=== PATIENT | female | born 1945 | race Caucasian/White ===

== ENCOUNTER → 2017-03-03 | Outpatient (CLI) | payer MEDICARE ==
[~2017-03-03] MED LIST: /MOXI40TA; /WARF25TA PO; ACET50TA PO; ACET65TA; ASPI1TAB PO; CAL; CALCTAB29 PO; COMBIVENT; FEXO60CA PO; FISH1200; FLON1SPR; HUMI40KI SC; HUMIRA SUBQ; IBUP200C; LEVO75TA4 PO; LEVOTAB10 PO; METO1TAB7 PO; NUCY50TA PO; RANI150T PO; SYNT50TA; SYNT75TA PO; TOPR25TA PO; VITA100L PO; VITA200019 PO; ZETI10TA21 PO; [UNRECOGNIZED DRUG - OTHER] VAGINALLY
--- NOTE | 2017-03-03 12:18 | REPMRS ---
Patient History The patient states she had a clinical breast exam in 02/2017. Patient is postmenopausal. Family history of pancreatic cancer in father at age 80 and prostate cancer in maternal grandfather at age 80. Took estrogen for 1 month. Digital Woman Screen Mammo: March 03, 2017 - Exam #: [id number] Bilateral CC and MLO view(s) were taken. Technologist: Mona Suarez, Technologist Prior study comparison: March 02, 2016, digital woman screen mammo performed at [facility]. December 26, 2014, digital woman screen mammo performed at [facility]. FINDINGS: There are scattered fibroglandular densities. There has been no change in the appearance of the mammogram from the prior studies. There is a mild amount of residual fibroglandular tissue which is fairly symmetric. There is no interval development of dominant mass, architectural distortion, or clustered microcalcification suggestive of malignancy. ASSESSMENT: BI-RADS/ACR category 1 mammogram. Negative. Recommendation Routine screening mammogram in 1 year (for women over age 40). This mammogram was interpreted with the aid of an FDA-approved computer-aided dectection system. Electronically Signed By: David Jeff MD 03/03/17 [id number]
== END ==
LOC: M WHC 10:34
PROVIDERS: ATTEND Nurse Practitioner Family
DX: Z12.31 Encounter for screening mammogram for malignant neoplasm of breast (principal); Z78.0 Asymptomatic menopausal state; Z80.0 Family history of malignant neoplasm of digestive organs
CPT/HCPCS: G0202; G0463

== ENCOUNTER 2017-05-21 10:02 | Emergency (ER) | payer MEDICARE ==
[~2017-05-21] VITALS: Ht 157.5 cm; Wt 90.9 kg
[~2017-05-21 10:02] MED LIST changes: -ASPI1TAB PO; -FLON1SPR; -HUMI40KI SC; -LEVO75TA4 PO; -LEVOTAB10 PO; -METO1TAB7 PO; -RANI150T PO
[2017-05-21] MEDS ORDERED: ASPI1TAB PO (10:17)
[2017-05-21] MEDS ORDERED: LEVOTAB10 PO (10:17)
[2017-05-21] MEDS ORDERED: RANI150T PO (10:17)
[2017-05-21] MEDS ORDERED: METO1TAB7 PO (10:17)
--- NOTE | 2017-05-21 11:08 | REP ---
Clinical: Chest pain . Comparison: 06/15/2014 . Findings: The mediastinum and cardiac silhouette are stable and within normal limits for portable technique. The lung crawford are clear without acute consolidation, effusion, or pneumothorax. Skeletal structures are intact. Impression: No acute cardiopulmonary process appreciated. Signed by Luis Escobar MD 05/21/2017 11:00 A
[2017-05-21 11:20] LABS: BASO % 0.6 % (0.0-1.0); EOS % 1.4 % (0.0-3.0); LARGE UNSTAINED CELL # 0.1 K/mm3 (0.0-0.4); LARGE UNSTAINED CELL % 2.5 % (0.0-4.0); LYMPH # 1.2 K/mm3 (1.5-4.5); MEAN CORPUSCULAR HGB CONC 33.3 g/dl (32.0-36.5); MEAN CORPUSCULAR VOLUME 90.1 fl (80.0-96.0); MONO # 0.4 K/mm3 (0.0-0.8); MONO % 11.4 % (0.0-5.0); NEUTROPHILS # 1.5 K/mm3 (1.8-7.7); NEUTROPHILS % 47.1 % (36.0-66.0); PLATELET COUNT, AUTOMATED 207 k/mm3 (150-450); RED CELL DISTRIBUTION WIDTH 12.5 % (11.5-14.5); WHITE BLOOD COUNT 3.1 K/mm3 (4.0-10.0)
[2017-05-21 11:23] LABS: ANION GAP 10 MEQ/L (8-16); BLOOD UREA NITROGEN 14 MG/DL (7-18); CALCIUM LEVEL 8.5 MG/DL (8.8-10.2); CARBON DIOXIDE LEVEL 23 MEQ/L (21-32); CHLORIDE LEVEL 112 MEQ/L (98-107); CREATININE FOR GFR 0.91 MG/DL (0.55-1.02); GLOMERULAR FILTRATION RATE > 60.0 (>39); GLUCOSE, FASTING 104 MG/DL (83-110); POTASSIUM SERUM 4.2 MEQ/L (3.5-5.1); SODIUM LEVEL 145 MEQ/L (136-145)
[2017-05-21] MEDS ORDERED: ISOVUE-370 76% 100ML VIAL (Q9967) As Ordered ONE (11:38)
[2017-05-21] MEDS ORDERED: LEVO75TA4 PO (11:58)
[2017-05-21] MEDS ORDERED: FLON1SPR (11:58)
[2017-05-21] MEDS ORDERED: HUMI40KI SC (11:58)
--- NOTE | 2017-05-21 12:02 | REP ---
Clinical: Chest pain . Technique: Axial contrast enhanced images from the thoracic inlet to the upper abdomen using 100 ml Isovue 370 intravenous contrast material with multiplanar re-formations. Findings: Satisfactory enhancement of the pulmonary vasculature is achieved and no filling defects are identified to suggest pulmonary embolus. Further evaluation of the mediastinum demonstrates normal thoracic aorta, heart and pericardium. The bilateral lung crawford are well aerated and demonstrate chronic age-related interstitial changes without consolidation, pleural effusion or pneumothorax. Tracheobronchial tree is patent. No nodule or mass lesion is identified. No adenopathy noted. Surrounding musculoskeletal structures intact Impression: No evidence for pulmonary embolus. No acute mediastinal or pleural parenchymal process. Diffuse chronic age-related interstitial changes. Signed by Luis Escobar MD 05/21/2017 11:54 A
[2017-05-21 14:22] VITALS: BP 119/66
--- NOTE | 2017-05-22 07:32 | ECGEPIP ---
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
--- NOTE | 2017-05-26 07:07 | ECGEPIP ---
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
== END 2017-05-21 14:23 | disposition home or self-care (01) ==
LOC: EDBD 10:02 → M ED 10:02
DX: K21.9 Gastro-esophageal reflux disease without esophagitis (principal); I10 Essential (primary) hypertension; Z79.899 Other long term (current) drug therapy; Z82.49 Family history of ischemic heart disease and other diseases of the circulatory system; Z88.5 Allergy status to narcotic agent; Z88.1 Allergy status to other antibiotic agents; Z88.8 Allergy status to other drugs, medicaments and biological substances; Z88.2 Allergy status to sulfonamides
CPT/HCPCS: 36415; 71010; 71275; 80048; 82550; 82553; 84484; 85025; 93005; 93041; 94760; 99285; Q9967

== ENCOUNTER 2017-08-24 09:18 | Emergency (ER) | payer MEDICARE ==
[~2017-08-24] VITALS: Ht 157.5 cm; Wt 89.5 kg
[~2017-08-24 09:18] MED LIST changes: +ASPI1TAB PO; +FLON1SPR; +HUMI40KI SC; +LEVO75TA4 PO; +LEVOTAB10 PO; +METO1TAB7 PO; +RANI150T PO
[2017-08-24] MEDS ORDERED: OMEP20CA3 (09:33)
[2017-08-24] MEDS ORDERED: MAGNCAP2 PO (09:33)
[2017-08-24 10:14] LABS: BASO % 0.4 % (0.0-1.0); EOS % 0.4 % (0.0-3.0); IMMATURE GRANULOCYTE % 0.4 % (0-0); LYMPH # 1.2 10^3/uL (1.5-4.5); LYMPH % 44.4 % (24.0-44.0); MEAN CORPUSCULAR HEMOGLOBIN 28.8 pg (27.0-33.0); MEAN CORPUSCULAR HGB CONC 32.5 g/dl (32.0-36.5); MEAN CORPUSCULAR VOLUME 88.5 fl (80.0-96.0); MONO # 0.4 10^3/uL (0.0-0.8); MONO % 15.3 % (0.0-5.0); NEUTROPHILS # 1.1 10^3/uL (1.8-7.7); NEUTROPHILS % 39.1 % (36.0-66.0); PLATELET COUNT, AUTOMATED 217 10^3/uL (150-450); RED CELL DISTRIBUTION WIDTH 12.3 % (11.5-14.5); WHITE BLOOD COUNT 2.7 10^3/uL (4.0-10.0)
[2017-08-24 10:29] LABS: ALBUMIN 3.4 GM/DL (3.2-5.2); ALBUMIN/GLOBULIN RATIO 0.76 (1.00-1.93); ALKALINE PHOSPHATASE 85 U/L (45-117); ALT/SGPT 20 U/L (12-78); ANION GAP 8 MEQ/L (8-16); AST/SGOT 20 U/L (7-37); BILIRUBIN,DIRECT < 0.1 MG/DL (0.0-0.2); BILIRUBIN,TOTAL 0.4 MG/DL (0.2-1.0); BLOOD UREA NITROGEN 14 MG/DL (7-18); CALCIUM LEVEL 8.5 MG/DL (8.8-10.2); CARBON DIOXIDE LEVEL 25 MEQ/L (21-32); CHLORIDE LEVEL 108 MEQ/L (98-107); CREATININE FOR GFR 1.04 MG/DL (0.55-1.02); GLOMERULAR FILTRATION RATE 55.5 (>39); GLUCOSE, FASTING 99 MG/DL (83-110); SODIUM LEVEL 141 MEQ/L (136-145); TOTAL PROTEIN 7.9 GM/DL (6.4-8.2)
[2017-08-24 11:29] VITALS: BP 165/81
[2017-08-24] MEDS ORDERED: amLODIPine 5 MG TAB PO ONE (11:30)
[2017-08-24] MEDS ORDERED: AMLO5TAB2 PO (11:52)
[2017-08-24 12:02] VITALS: BP 159/76
--- NOTE | 2017-08-24 12:53 | REP ---
Portable chest x-ray: Single view. History: Chest pain. Comparison study: May 21, 2017. Findings: EKG monitoring electrodes overlie the chest. The lungs are symmetrically aerated and free of infiltrate. Pleural angles are sharp. Heart size is normal. Pulmonary vasculature is not increased. No significant bony abnormality. Impression: Negative portable chest x-ray. Signed by Jaime Branham MD 08/24/2017 02:45 P
--- NOTE | 2017-08-25 04:35 | ECGEPIP ---
Stationary ECG Study [facility] - ED Test Date: 2017-08-24 Pat Name: JEANNE HARO Department: Room: - Gender: F Network Specialist: shanae : 1945 Requested By: Alphonse Mills Order Number: [id number] Reading MD: Alphonse Simmons Measurements Intervals [place] Rate: 71 P: 26 DC: 159 QRS: -13 QRSD: 66 T: -6 QT: 376 QTc: 411 Interpretive Statements SINUS RHYTHM NSTTW ABNORMALITIES SIMILAR TO 05/21/17 Electronically Signed On 08-25-2017 4:34:47 EST by Alphonse Simmons
== END 2017-08-24 12:15 | disposition home or self-care (01) ==
LOC: M ED 09:18 → EDBD 09:18 → M ED 12:15
DX: R07.89 Other chest pain (principal); I10 Essential (primary) hypertension; K21.9 Gastro-esophageal reflux disease without esophagitis; R94.31 Abnormal electrocardiogram [ECG] [EKG]; E78.5 Hyperlipidemia, unspecified; Z79.82 Long term (current) use of aspirin; Z79.899 Other long term (current) drug therapy; Z88.1 Allergy status to other antibiotic agents; Z88.8 Allergy status to other drugs, medicaments and biological substances; Z88.5 Allergy status to narcotic agent; Z88.2 Allergy status to sulfonamides

== ENCOUNTER → 2018-03-22 | Outpatient (CLI) | payer MEDICARE | LOC: M WHC 13:29 | DX: Z12.31 Encounter for screening mammogram for malignant neoplasm of breast (principal); Z01.419 Encounter for gynecological examination (general) (routine) without abnormal findings (principal); N95.9 Unspecified menopausal and perimenopausal disorder; Z78.0 Asymptomatic menopausal state; Z92.23 Personal history of estrogen therapy; Z12.12 Encounter for screening for malignant neoplasm of rectum | CPT/HCPCS: 77067 ==

== ENCOUNTER → 2018-06-13 | Outpatient (REF) | payer MEDICARE ==
[2018-06-13 20:03] LABS: BASO % 0.2 % (0.0-1.0); EOS % 0.5 % (0.0-3.0); IMMATURE GRANULOCYTE % 0.2 % (0-3.0); LYMPH # 0.9 10^3/uL (1.5-4.5); LYMPH % 22.2 % (24.0-44.0); MEAN CORPUSCULAR HEMOGLOBIN 27.8 pg (27.0-33.0); MEAN CORPUSCULAR HGB CONC 31.6 g/dl (32.0-36.5); MONO # 0.3 10^3/uL (0.0-0.8); MONO % 7.7 % (0.0-5.0); NEUTROPHILS # 2.8 10^3/uL (1.8-7.7); NEUTROPHILS % 69.2 % (36.0-66.0); PLATELET COUNT, AUTOMATED 189 10^3/uL (150-450); RED BLOOD COUNT 4.32 10^6/uL (4.00-5.40); RED CELL DISTRIBUTION WIDTH 14.2 % (11.5-14.5); WHITE BLOOD COUNT 4.1 10^3/uL (4.0-10.0)
== END ==
LOC: M LABDRWAD 19:17
DX: Z51.81 Encounter for therapeutic drug level monitoring (principal); Z79.899 Other long term (current) drug therapy
CPT/HCPCS: 85027

== ENCOUNTER → 2018-07-31 | Outpatient (REF) | payer MEDICARE ==
[2018-07-31 13:04] LABS: BASO % 0.6 % (0.0-1.0); EOS % 2.2 % (0.0-3.0); HEMATOCRIT 34.8 % (36.0-47.0); HEMOGLOBIN 11.1 g/dl (12.0-15.5); LYMPH # 1.2 10^3/uL (1.5-4.5); LYMPH % 68.7 % (24.0-44.0); MEAN CORPUSCULAR HEMOGLOBIN 27.8 pg (27.0-33.0); MEAN CORPUSCULAR HGB CONC 31.9 g/dl (32.0-36.5); MEAN CORPUSCULAR VOLUME 87.2 fl (80.0-96.0); MONO # 0.3 10^3/uL (0.0-0.8); MONO % 16.2 % (0.0-5.0); NEUTROPHILS % 12.3 % (36.0-66.0); PLATELET COUNT, AUTOMATED 134 10^3/uL (150-450); RED BLOOD COUNT 3.99 10^6/uL (4.00-5.40); RED CELL DISTRIBUTION WIDTH 14.6 % (11.5-14.5)
[2018-07-31 13:11] LABS: ALBUMIN/GLOBULIN RATIO 0.75 (1.00-1.93); ALKALINE PHOSPHATASE 80 U/L (45-117); ALT/SGPT 18 U/L (12-78); ANION GAP 7 MEQ/L (8-16); AST/SGOT 20 U/L (7-37); BILIRUBIN,TOTAL 0.3 MG/DL (0.2-1.0); BLOOD UREA NITROGEN 15 MG/DL (7-18); CALCIUM LEVEL 8.2 MG/DL (8.8-10.2); CARBON DIOXIDE LEVEL 25 MEQ/L (21-32); CHLORIDE LEVEL 109 MEQ/L (98-107); CHOLESTEROL LEVEL 198 MG/DL (<200); CHOLESTEROL RISK RATIO 6.387 (<5); CREATININE FOR GFR 0.94 MG/DL (0.55-1.30); FREE T4 0.99 NG/DL (0.76-1.46); GLOMERULAR FILTRATION RATE > 60.0 (>39); GLUCOSE, FASTING 100 MG/DL (70-100); HDL CHOLESTEROL 31 MG/DL (>40); LDL CHOLESTEROL 123 MG/DL (<100); NON-HDL-C 167 MG/DL; POTASSIUM SERUM 3.1 MEQ/L (3.5-5.1); SODIUM LEVEL 141 MEQ/L (136-145); TRIGLYCERIDES LEVEL 221 MG/DL (<150)
[2018-07-31 13:31] LABS: NEUTROPHILS # 0.2 10^3/uL (1.8-7.7); POS COUNT POS FLAG; POSITIVE DIFF POS FLAG; WHITE BLOOD COUNT 1.8 10^3/uL (4.0-10.0)
== END ==
LOC: M SFHCADAM 07:59
DX: I10 Essential (primary) hypertension (principal); E03.9 Hypothyroidism, unspecified; K21.9 Gastro-esophageal reflux disease without esophagitis; M05.79 Rheumatoid arthritis with rheumatoid factor of multiple sites without organ or systems involvement
CPT/HCPCS: 84443

== ENCOUNTER → 2018-09-07 | Outpatient (CLI) | payer MEDICARE ==
[~2018-09-07] MED LIST changes: +AMLO5TAB6 PO; +D-MA500C PO; +E-Z-GAS II EFFERVESCENT PACKET (SODIUM BICARB./CITRIC ACID/SIMETHICONE) As Ordered ONE; +E-Z-HD 98% w/w 340GM SUSP BTL As Ordered ONE; +E-Z-PAQUE 96% w/w SUSP 176GM BTL As Ordered ONE; +MAGNCAP2 PO; +MONT10TA2 PO; +OMEP-221 PO; +OMEP20CA3; +PROBCAP14 PO; +STOO100C PO; +SUCR1SS PO; +SYNT88TA2 PO
--- NOTE | 2018-09-12 11:16 | REP ---
Clinical: Epigastric pain. Technique: Double contrast upper GI examination with small bowel follow-through using barium substrates. 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 The esophagus demonstrates relatively normal motility with few tertiary waves noted. Mucosal pattern is otherwise normal and without ulcerations, polyps, or mass lesion. A small hiatal hernia is identified along with minimal reproducible reflux to the distal esophagus. No obvious sequelae of longstanding gastroesophageal reflux disease noted. Evaluation of the stomach and duodenum demonstrate normal gastric rugal and duodenal mucosal folds without evidence for peptic ulcer disease, ulcerations, polyps, intrinsic or extrinsic abnormalities. Small-bowel follow-through portion of the examination demonstrates relatively normal appearance to the small bowel. A small diverticulum is noted involving the crossing duodenum measuring approximately 15 mm maximal diameter. Remainder examination including terminal ileum is unremarkable. Total fluoroscopic time 2.0 minutes . Impression: 1. Small hiatal hernia with minimal gastric reflux. 2. Few scattered tertiary waves through the esophagus likely age-related but with otherwise normal esophageal peristalsis. 3. Small non appearing duodenal diverticulum measuring approximately 15 mm. Electronically Signed by Luis Escobar MD 09/12/2018 11:07 A
== END ==
LOC: M RAD 08:43
PROVIDERS: ATTEND Physician Assistant Medical
DX: K21.9 Gastro-esophageal reflux disease without esophagitis (principal); R10.13 Epigastric pain; K44.9 Diaphragmatic hernia without obstruction or gangrene; K57.10 Diverticulosis of small intestine without perforation or abscess without bleeding

== ENCOUNTER → 2018-09-22 | Outpatient (CLI) | payer MEDICARE ==
[~2018-09-22] MED LIST changes: -E-Z-GAS II EFFERVESCENT PACKET (SODIUM BICARB./CITRIC ACID/SIMETHICONE) As Ordered ONE; -E-Z-HD 98% w/w 340GM SUSP BTL As Ordered ONE; -E-Z-PAQUE 96% w/w SUSP 176GM BTL As Ordered ONE
--- NOTE | 2018-09-22 11:47 | REP ---
RIGHT UPPER QUADRANT ULTRASOUND: Real-time sonographic evaluation of the right upper quadrant performed. Gallbladder demonstrates no evidence of intraluminal sludge or calculi, wall thickening, or pericholecystic fluid. There is no intrahepatic or extrahepatic biliary dilatation, common bile duct measuring 3 mm in diameter. Liver and pancreas demonstrate no gross mass, pancreas is not optimally seen due to overlying bowel gas. Right kidney demonstrates no hydronephrosis with normal size 9.7 cm in length. IMPRESSION: Essentially negative right upper quadrant ultrasound. Electronically Signed by David Jeff MD 09/22/2018 12:56 P
== END ==
LOC: M RAD 09:34
PROVIDERS: ATTEND Physician Assistant Medical
DX: R10.11 Right upper quadrant pain (principal)

== ENCOUNTER 2018-09-28 08:48 | Emergency (ER) | payer MEDICARE ==
[~2018-09-28] VITALS: Ht 157.5 cm; Wt 190.0 kg
[~2018-09-28 08:48] MED LIST changes: -PRED1TABL PO
[2018-09-28 08:49] VITALS: BP 146/78
[2018-09-28] MEDS ORDERED: GI COCKTAIL 50ML BTL(HYOSCYAMINE/MAALOX/LIDOCAINE VISCOUS)(1:3:1) PO ONE (09:15)
[2018-09-28 09:30] LABS: BASO % 0.7 % (0.0-1.0); EOS # 0.1 10^3/uL (0.0-0.50); EOS % 4.3 % (0.0-3.0); HEMATOCRIT 39.4 % (36.0-47.0); HEMOGLOBIN 12.6 g/dl (12.0-15.5); LYMPH # 0.7 10^3/uL (1.5-4.5); LYMPH % 53.2 % (24.0-44.0); MEAN CORPUSCULAR HEMOGLOBIN 26.7 pg (27.0-33.0); MEAN CORPUSCULAR VOLUME 83.5 fl (80.0-96.0); MONO # 0.4 10^3/uL (0.0-0.8); MONO % 28.1 % (0.0-5.0); NEUTROPHILS % 13.7 % (36.0-66.0); PLATELET COUNT, AUTOMATED 172 10^3/uL (150-450); RED BLOOD COUNT 4.72 10^6/uL (4.00-5.40)
[2018-09-28 10:00] LABS: ALBUMIN 3.1 GM/DL (3.2-5.2); BILIRUBIN,DIRECT 0.1 MG/DL (0.0-0.2); BILIRUBIN,TOTAL 0.3 MG/DL (0.2-1.0); CALCIUM LEVEL 8.5 MG/DL (8.8-10.2); CREATININE FOR GFR 0.97 MG/DL (0.55-1.30); GLOMERULAR FILTRATION RATE 59.9 (>39); POTASSIUM SERUM 3.9 MEQ/L (3.5-5.1); TOTAL PROTEIN 7.4 GM/DL (6.4-8.2)
[2018-09-28 10:01] LABS: NEUTROPHILS # 0.2 10^3/uL (1.8-7.7); WHITE BLOOD COUNT 1.4 10^3/uL (4.0-10.0)
[2018-09-28] MEDS ORDERED: SUCR1SS PO (10:14)
[2018-09-28] MEDS ORDERED: SUCRALFATE SUSP 1GM/10ML UD PO ONE (10:30)
--- NOTE | 2018-09-28 18:54 | ECGEPIP ---
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
[2018-10-02] MEDS ORDERED: PRED1TABL PO (13:28)
== END 2018-09-28 10:46 | disposition home or self-care (01) ==
LOC: M ED 08:48
DX: R10.9 Unspecified abdominal pain (principal); R00.0 Tachycardia, unspecified; M06.9 Rheumatoid arthritis, unspecified; Z94.81 Bone marrow transplant status; Z79.899 Other long term (current) drug therapy; Z88.1 Allergy status to other antibiotic agents; Z88.5 Allergy status to narcotic agent; Z88.2 Allergy status to sulfonamides; Z88.8 Allergy status to other drugs, medicaments and biological substances

== ENCOUNTER → 2018-09-28 | Outpatient (REF) | payer MEDICARE ==
[~2018-09-28] MED LIST changes: +PRED1TABL PO
[2018-09-28 15:59] LABS: FREE T4 1.3 NG/DL (0.76-1.46); THYROID STIMULATING HORMONE 2.71 uIU/ML (0.358-3.740)
== END ==
LOC: M SFHCADAM 09-27 15:15
PROVIDERS: ATTEND Physician Assistant Medical
DX: E03.9 Hypothyroidism, unspecified (principal)

== ENCOUNTER → 2018-09-28 | Outpatient (REF) | payer MEDICARE ==
[2018-09-28 15:49] LABS: ALBUMIN 3.1 GM/DL (3.2-5.2); BILIRUBIN,TOTAL 0.3 MG/DL (0.2-1.0); C REACTIVE PROTEIN QUANTITATIV 0.96 MG/DL (0.00-0.30); CALCIUM LEVEL 8.5 MG/DL (8.8-10.2); CREATININE FOR GFR 0.99 MG/DL (0.55-1.30); GLOMERULAR FILTRATION RATE 58.5 (>39); POTASSIUM SERUM 3.9 MEQ/L (3.5-5.1); TOTAL PROTEIN 7.4 GM/DL (6.4-8.2)
== END ==
LOC: M LAB REF 15:14
PROVIDERS: ATTEND Internal Medicine Rheumatology
DX: M05.79 Rheumatoid arthritis with rheumatoid factor of multiple sites without organ or systems involvement (principal); Z79.899 Other long term (current) drug therapy

== ENCOUNTER → 2018-10-23 | Outpatient (REF) | payer MEDICARE ==
[~2018-10-23] MED LIST changes: +PRED1TABL PO
[2018-10-23 20:38] LABS: MAGNESIUM LEVEL 2.2 MG/DL (1.8-2.4)
[2018-10-23 20:51] LABS: TOTAL 25(OH) VITAMIN D 41.9 NG/ML (30.0-100.0)
== END ==
LOC: M LABDRWAD 19:02
PROVIDERS: ATTEND Physician Assistant
DX: E55.9 Vitamin D deficiency, unspecified (principal)

== ENCOUNTER 2018-11-02 20:48 | Emergency (ER) | payer MEDICARE ==
[~2018-11-02] VITALS: Ht 157.5 cm; Wt 86.4 kg
[2018-11-02] MEDS ORDERED: NS 1,000 ML IV ONE (21:15)
[2018-11-02] MEDS ORDERED: ONDANSETRON 4MG/2ML VIAL (J2405) IV ONE (21:15)
[2018-11-02 21:23] LABS: BASO % 0.8 % (0.0-1.0); HEMATOCRIT 36.9 % (36.0-47.0); LYMPH # 0.6 10^3/uL (1.5-4.5); LYMPH % 42.6 % (24.0-44.0); MEAN CORPUSCULAR HEMOGLOBIN 25.9 pg (27.0-33.0); MEAN CORPUSCULAR HGB CONC 32.5 g/dl (32.0-36.5); MEAN CORPUSCULAR VOLUME 79.7 fl (80.0-96.0); MONO # 0.5 10^3/uL (0.0-0.8); PLATELET COUNT, AUTOMATED 161 10^3/uL (150-450); RED BLOOD COUNT 4.63 10^6/uL (4.00-5.40)
[2018-11-02 21:45] LABS: BILIRUBIN,DIRECT 0.3 MG/DL (0.0-0.2); BILIRUBIN,TOTAL 0.9 MG/DL (0.2-1.0); CALCIUM LEVEL 8.8 MG/DL (8.8-10.2); CREATININE FOR GFR 1.1 MG/DL (0.55-1.30); GLOMERULAR FILTRATION RATE 51.8 (>39); POTASSIUM SERUM 3.5 MEQ/L (3.5-5.1)
[2018-11-02 21:49] LABS: NEUTROPHILS # 0.2 10^3/uL (1.8-7.7); WHITE BLOOD COUNT 1.3 10^3/uL (4.0-10.0)
[2018-11-03 00:12] VITALS: BP 131/73
--- NOTE | 2018-11-17 14:16 | REP ---
REPEAT DICTATION ABDOMEN SERIES: Three views. History: Abdomen pain. FINDINGS: Upright chest radiograph is compared with the August 24, 2017 prior study. EKG electrodes are seen. There is no evidence of infiltrate or free subdiaphragmatic air. Heart is not enlarged. Supine erect views of the abdomen show air and stool in a nondistended colon. There is a single air and fluid filled loop of mildly prominent small bowel in the left mid abdomen. This displays small air-fluid levels. Psoas margins and flank stripes are intact. There is some retained diverticular barium in the sigmoid colon. A prosthetic right hip joint is seen. IMPRESSION: Nonspecific small bowel loop in the left mid abdomen. Otherwise negative abdominal series. Unreviewed
== END 2018-11-03 00:18 | disposition home or self-care (01) ==
LOC: M ED 20:48
DX: K52.9 Noninfective gastroenteritis and colitis, unspecified (principal); E03.9 Hypothyroidism, unspecified; M19.90 Unspecified osteoarthritis, unspecified site; M06.9 Rheumatoid arthritis, unspecified; K21.9 Gastro-esophageal reflux disease without esophagitis; E78.5 Hyperlipidemia, unspecified; Z79.899 Other long term (current) drug therapy; Z88.1 Allergy status to other antibiotic agents; Z88.8 Allergy status to other drugs, medicaments and biological substances; Z88.5 Allergy status to narcotic agent; Z88.2 Allergy status to sulfonamides
CPT/HCPCS: 74021; 80048; 80076; 81001; 83690; 85025; 87088; 87186; 93041; 94760; 96361; 96374; 99285; J2405

== ENCOUNTER → 2019-04-09 | Outpatient (CLI) | payer MEDICARE ==
[~2019-04-09] MED LIST changes: -/MOXI40TA; -/WARF25TA PO; -ACET50TA PO; -ASPI1TAB PO; +ASPI81TA26 PO; +AVEL1TAB2; +COUM1TAB18 PO; +D-MA50PO PO; +DIFL150T PO; +MAPA500T17 PO; +METO-1 PO; +MM S100C PO; -OMEP20CA3; +OMEP20CA4; -STOO100C PO; -TOPR25TA PO
--- NOTE | 2019-04-09 15:29 | REP ---
BILATERAL SCREENING DIGITAL MAMMOGRAM WITH 3D TOMOSYNTHESIS: There are no palpable abnormalities or other breast complaints. The the patient states she had a clinical breast examination March/2019. The the patient states she performs self-breast examinations six times per year. The Tyrer-Cuzick Score is: 3.7% . Comparison is 12/05/2013. There are scattered areas of fibroglandular density. There is no dominant mass, micro calcific cluster or architectural distortion that would indicate malignancy. There are no additional findings on 3D tomosynthesiss. There is no change from the prior study. Impression: BIRADS/ACR category 1 mammogram. Negative. Recommendation: Routine annual screening mammography. This mammogram was interpreted with the aid of a FDA approved computer-aided detection system. A. Negative mammogram reports should not delay biopsy if a dominant or clinically suspicious mass is present. B. Not all breast cancers are identified by mammography or tomosynthesis. C. Adenosis and dense breasts may obscure an underlying neoplasm. Patient letter M1. Electronically Signed by David Hernandez MD 04/09/2019 03:21 P
== END ==
LOC: M WHC 14:05
PROVIDERS: ATTEND Nurse Practitioner Family
DX: Z12.31 Encounter for screening mammogram for malignant neoplasm of breast (principal)
CPT/HCPCS: 77063; 77067; G0463

== ENCOUNTER → 2019-07-16 | Outpatient (REF) | payer MEDICARE ==
[2019-07-16 14:08] LABS: EOS % 1.2 % (0.0-3.0); HEMATOCRIT 40.4 % (36.0-47.0); HEMOGLOBIN 12.3 g/dl (12.0-15.5); LYMPH # 0.5 10^3/uL (1.5-5.0); LYMPH % 63.4 % (24.0-44.0); MEAN CORPUSCULAR HGB CONC 30.4 g/dl (32.0-36.5); MEAN CORPUSCULAR VOLUME 91.8 fl (80.0-96.0); MONO # 0.2 10^3/uL (0.0-0.8); MONO % 26.8 % (0.0-5.0); NEUTROPHILS % 8.6 % (36.0-66.0); PLATELET COUNT, AUTOMATED 130 10^3/uL (150-450)
[2019-07-16 16:01] LABS: NEUTROPHILS # 0.1 10^3/uL (1.5-8.5); WHITE BLOOD COUNT 0.8 10^3/uL (4.0-10.0)
== END ==
LOC: M LABDRWAD 12:43
PROVIDERS: ATTEND Internal Medicine Rheumatology
DX: Z79.899 Other long term (current) drug therapy (principal)

== ENCOUNTER → 2019-07-16 | Outpatient (REF) | payer MEDICARE ==
[2019-07-16 14:21] LABS: ALBUMIN 3.1 GM/DL (3.2-5.2); ALT/SGPT 16 U/L (12-78); BILIRUBIN,TOTAL 0.5 MG/DL (0.2-1.0); BLOOD UREA NITROGEN 19 MG/DL (7-18); CALCIUM LEVEL 8.7 MG/DL (8.8-10.2); CARBON DIOXIDE LEVEL 29 MEQ/L (21-32); CHLORIDE LEVEL 108 MEQ/L (98-107); CHOLESTEROL LEVEL 200 MG/DL (<200); CHOLESTEROL RISK RATIO 5.882 (<5); CREATININE FOR GFR 0.91 MG/DL (0.55-1.30); GLOMERULAR FILTRATION RATE > 60.0 (>39); GLUCOSE, FASTING 101 MG/DL (70-100); HDL CHOLESTEROL 34 MG/DL (>40); LDL CHOLESTEROL 130 MG/DL (<100); NON-HDL-C 166 MG/DL; POTASSIUM SERUM 4.3 MEQ/L (3.5-5.1); SODIUM LEVEL 143 MEQ/L (136-145); TOTAL PROTEIN 8.2 GM/DL (6.4-8.2); TRIGLYCERIDES LEVEL 181 MG/DL (<150)
[2019-07-16 15:23] LABS: HEMOGLOBIN A1c 6.6 %
== END ==
LOC: M LABDRWAD 12:44
PROVIDERS: ATTEND Nurse Practitioner Adult Health
DX: E03.9 Hypothyroidism, unspecified (principal); F41.1 Generalized anxiety disorder; K21.9 Gastro-esophageal reflux disease without esophagitis; I10 Essential (primary) hypertension; F32.1 Major depressive disorder, single episode, moderate; Z83.3 Family history of diabetes mellitus; Z79.899 Other long term (current) drug therapy

== ENCOUNTER → 2019-10-23 | Outpatient (REF) | payer MEDICARE ==
[~2019-10-23] MED LIST changes: +CALCTAB38 PO; -MONT10TA2 PO; +MONT10TA4 PO; +OMEP1CAP73; -OMEP20CA4
== END ==
LOC: M LAB REF 09:32
PROVIDERS: ATTEND Dermatology
DX: D48.9 Neoplasm of uncertain behavior, unspecified (principal)

== ENCOUNTER 2020-01-17 04:40 | Emergency (ER) | payer MEDICARE ==
[2020-01-17] MEDS ORDERED: METOCLOPRAMIDE INJ 10MG/2ML VIAL (J2765 PER 1) IV ONE (05:15)
[2020-01-17] MEDS ORDERED: NS 1,000 ML IV ONE ×3 (05:15→08:45)
[2020-01-17 05:51] LABS: EOS % 0.4 % (0.0-3.0); HEMATOCRIT 46.3 % (36.0-47.0); HEMOGLOBIN 15.1 g/dl (12.0-15.5); LYMPH # 0.3 10^3/uL (1.5-5.0); LYMPH % 13.5 % (24.0-44.0); MEAN CORPUSCULAR HEMOGLOBIN 25.6 pg (27.0-33.0); MEAN CORPUSCULAR HGB CONC 32.6 g/dl (32.0-36.5); MEAN CORPUSCULAR VOLUME 78.5 fl (80.0-96.0); MONO # 0.4 10^3/uL (0.0-0.8); MONO % 15.9 % (0.0-5.0); NEUTROPHILS # 1.7 10^3/uL (1.5-8.5); NEUTROPHILS % 69.8 % (36.0-66.0); PLATELET COUNT, AUTOMATED 168 10^3/uL (150-450); WHITE BLOOD COUNT 2.5 10^3/uL (4.0-10.0)
[2020-01-17 06:06] LABS: CREATININE FOR GFR 1.12 MG/DL (0.55-1.30); GLOMERULAR FILTRATION RATE 50.6 (>39); POTASSIUM SERUM 4.5 MEQ/L (3.5-5.1)
[2020-01-17 06:07] LABS: ALBUMIN 3.7 GM/DL (3.2-5.2); BILIRUBIN,DIRECT 0.2 MG/DL (0.0-0.2); CALCIUM LEVEL 9.4 MG/DL (8.8-10.2); TOTAL PROTEIN 9.3 GM/DL (6.4-8.2)
[2020-01-17] MEDS ORDERED: ISOVUE-370 76% 100ML VIAL As Ordered ONE (06:40)
--- NOTE | 2020-01-17 07:19 | REPVR ---
PROCEDURE INFORMATION: Exam: CT Abdomen And Pelvis With Contrast Exam date and time: 01/17/2020 6:33 AM Age: 74 years old Clinical indication: Abdominal pain; Generalized TECHNIQUE: Imaging protocol: Computed tomography of the abdomen and pelvis with intravenous contrast. Radiation optimization: All CT scans at this facility use at least one of these dose optimization techniques: automated exposure control; mA and/or kV adjustment per patient size (includes targeted exams where dose is matched to clinical indication); or iterative reconstruction. Contrast material: ISO; Contrast volume: 100 ml; Contrast route: AC; COMPARISON: US PELVIC NON OB COMPLETE 10/22/2013 11:15 AM FINDINGS: Lungs: There are bibasilar and lingular atelectatic lung changes. Mediastinum: There is small sliding hiatal hernia. Liver: Normal. No mass. Gallbladder and bile ducts: Normal. No calcified stones. No ductal dilation. Pancreas: Normal. No ductal dilation. Spleen: The spleen is markedly enlarged measuring 17.4 x 12.9 x 8.5 cm. Adrenals: Normal. No mass. Kidneys and ureters: Normal. No hydronephrosis. Stomach and bowel: There is descending and sigmoid colon diverticulosis. There are multiple mildly distended small bowel loops with fluid measuring up to 3.2 cm in maximum dimensions with mural thickening and hyperemia coupled with mesenteric stranding and edema in addition to multiple shotty small bowel mesenteric lymph nodes. There there is nondistention of the distal ileum however without evidence of sudden transition. Appendix: No evidence of appendicitis. Intraperitoneal space: Unremarkable. No free air. No significant fluid collection. Vasculature: There is mild aortic and iliac mural calcifications. Lymph nodes: Unremarkable. No enlarged lymph nodes. Bladder: Unremarkable as visualized. Reproductive: There is a 1.9 cm right ovarian cyst. Bones/joints: There is diffuse bony osteopenia. There is L2-L3 through L4-L5 disc degenerative changes. There is mild lumbar spine scoliosis. There is multilevel lumbar spine facet arthrosis. There is grade 1 retrolisthesis of L4 on L5. The patient is status post total right hip replacement with grossly intact prosthesis. Soft tissues: Unremarkable. IMPRESSION: 1. CT findings suggestive enteritis with mild ileus like picture. Obstruction is unlikely. 2. Descending and sigmoid colon diverticulosis. 3. Marked splenomegaly. 4. Small sliding hiatal hernia. 5. 1.9 cm right ovarian cyst corresponding to simple cyst seen on ultrasound of 2013. Electronically signed by: Martínez Beth On 01/17/2020 07:18:45 AM
[2020-01-17 09:41] LABS: FREE T4 1.75 NG/DL (0.76-1.46); THYROID STIMULATING HORMONE 1.79 uIU/ML (0.358-3.740)
[2020-01-17 10:30] VITALS: BP 135/77
== END 2020-01-17 11:02 | disposition home or self-care (01) ==
LOC: M ED 04:40
DX: D70.9 Neutropenia, unspecified (principal); R10.9 Unspecified abdominal pain; R11.10 Vomiting, unspecified; R00.0 Tachycardia, unspecified; I10 Essential (primary) hypertension; K21.9 Gastro-esophageal reflux disease without esophagitis; M19.90 Unspecified osteoarthritis, unspecified site; Z88.1 Allergy status to other antibiotic agents; Z88.2 Allergy status to sulfonamides; Z88.5 Allergy status to narcotic agent; Z79.899 Other long term (current) drug therapy; Z79.52 Long term (current) use of systemic steroids
CPT/HCPCS: 51701; 74177; 80048; 80076; 81001; 83605; 83690; 84439; 84443; 85025; 87040; 96361; 96374; 99284; J2765; Q9967

== ENCOUNTER → 2020-05-16 | Outpatient (REF) | payer MEDICARE ==
[~2020-05-16] MED LIST changes: +AMLO1TAB24 PO; -AMLO5TAB6 PO; +CIPR5SUS PO; +KEFL500C17 PO; +OMEP-218 PO; +PRED5TA PO
[2020-05-16 14:20] LABS: EOS % 1.2 % (0.0-3.0); HEMATOCRIT 40.2 % (36.0-47.0); HEMOGLOBIN 12.5 g/dl (12.0-15.5); LYMPH # 0.9 10^3/uL (1.5-5.0); LYMPH % 54.4 % (24.0-44.0); MEAN CORPUSCULAR HEMOGLOBIN 25.8 pg (27.0-33.0); MEAN CORPUSCULAR HGB CONC 31.1 g/dl (32.0-36.5); MEAN CORPUSCULAR VOLUME 82.9 fl (80.0-96.0); MONO # 0.5 10^3/uL (0.0-0.8); MONO % 27.5 % (0.0-5.0); NEUTROPHILS % 16.9 % (36.0-66.0); PLATELET COUNT, AUTOMATED 207 10^3/uL (150-450); RED BLOOD COUNT 4.85 10^6/uL (4.00-5.40); WHITE BLOOD COUNT 1.7 10^3/uL (4.0-10.0)
[2020-05-16 14:25] LABS: NEUTROPHILS # 0.3 10^3/uL (1.5-8.5)
== END ==
LOC: M LABDRWAD 12:27
PROVIDERS: ATTEND Specialist
DX: Z51.81 Encounter for therapeutic drug level monitoring (principal)

== ENCOUNTER → 2020-05-30 | Outpatient (REF) | payer MEDICARE ==
[2020-05-30 13:32] LABS: BASO % 0.6 % (0.0-1.0); EOS % 1.9 % (0.0-3.0); HEMATOCRIT 40.1 % (36.0-47.0); HEMOGLOBIN 12.3 g/dl (12.0-15.5); LYMPH # 0.9 10^3/uL (1.5-5.0); LYMPH % 52.5 % (24.0-44.0); MEAN CORPUSCULAR HEMOGLOBIN 25.9 pg (27.0-33.0); MEAN CORPUSCULAR HGB CONC 30.7 g/dl (32.0-36.5); MEAN CORPUSCULAR VOLUME 84.4 fl (80.0-96.0); MONO # 0.4 10^3/uL (0.0-0.8); MONO % 24.1 % (0.0-5.0); NEUTROPHILS % 19.7 % (36.0-66.0); PLATELET COUNT, AUTOMATED 159 10^3/uL (150-450); RED BLOOD COUNT 4.75 10^6/uL (4.00-5.40); WHITE BLOOD COUNT 1.6 10^3/uL (4.0-10.0)
[2020-05-30 14:27] LABS: NEUTROPHILS # 0.3 10^3/uL (1.5-8.5)
== END ==
LOC: M LABDRWAD 12:43
PROVIDERS: ATTEND Specialist
DX: Z51.81 Encounter for therapeutic drug level monitoring (principal)

== ENCOUNTER → 2020-06-19 | Outpatient (REF) | payer MEDICARE ==
[2020-06-19 16:41] LABS: EOS % 2.8 % (0.0-3.0); HEMATOCRIT 39.1 % (36.0-47.0); HEMOGLOBIN 11.9 g/dl (12.0-15.5); LYMPH # 0.4 10^3/uL (1.5-5.0); LYMPH % 31.2 % (24.0-44.0); MEAN CORPUSCULAR HEMOGLOBIN 25.5 pg (27.0-33.0); MEAN CORPUSCULAR HGB CONC 30.4 g/dl (32.0-36.5); MEAN CORPUSCULAR VOLUME 83.7 fl (80.0-96.0); MONO # 0.3 10^3/uL (0.0-0.8); PLATELET COUNT, AUTOMATED 228 10^3/uL (150-450); RED BLOOD COUNT 4.67 10^6/uL (4.00-5.40); WHITE BLOOD COUNT 1.4 10^3/uL (4.0-10.0)
[2020-06-19 16:51] LABS: NEUTROPHILS # 0.6 10^3/uL (1.5-8.5)
== END ==
LOC: M LABDRWAD 16:03
PROVIDERS: ATTEND Specialist
DX: D69.6 Thrombocytopenia, unspecified (principal)

== ENCOUNTER → 2020-07-03 | Outpatient (REF) | payer MEDICARE ==
[2020-07-03 13:02] LABS: HEMOGLOBIN A1c 7.4 %
[2020-07-03 13:10] LABS: BLOOD UREA NITROGEN 21 MG/DL (7-18); CARBON DIOXIDE LEVEL 27 MEQ/L (21-32); CHLORIDE LEVEL 109 MEQ/L (98-107); CREATININE FOR GFR 0.83 MG/DL (0.55-1.30); GLOMERULAR FILTRATION RATE > 60.0 (>39); GLUCOSE, FASTING 100 MG/DL (70-100); POTASSIUM SERUM 4.4 MEQ/L (3.5-5.1); SODIUM LEVEL 141 MEQ/L (136-145)
[2020-07-03 13:11] LABS: ALT/SGPT 26 U/L (12-78); BILIRUBIN,TOTAL 0.4 MG/DL (0.2-1.0); CALCIUM LEVEL 8.6 MG/DL (8.8-10.2); CHOLESTEROL LEVEL 198 MG/DL (<200); HDL CHOLESTEROL 33 MG/DL (>40); LDL CHOLESTEROL 121 MG/DL (<100); NON-HDL-C 165 MG/DL; TOTAL PROTEIN 7.6 GM/DL (6.4-8.2); TRIGLYCERIDES LEVEL 222 MG/DL (<150)
== END ==
LOC: M SFHCPLAZ 09:02 → M SFHCADAM 09:14
PROVIDERS: ATTEND Nurse Practitioner Adult Health
DX: R73.9 Hyperglycemia, unspecified (principal); E03.9 Hypothyroidism, unspecified; F41.1 Generalized anxiety disorder; K21.9 Gastro-esophageal reflux disease without esophagitis; I10 Essential (primary) hypertension; F32.1 Major depressive disorder, single episode, moderate; E55.9 Vitamin D deficiency, unspecified

== ENCOUNTER → 2020-07-09 | Outpatient (CLI) | payer MEDICARE ==
--- NOTE | 2020-07-09 16:38 | REPMRS ---
Patient History The patient states she had a clinical breast exam in March 2020.Family history of pancreatic cancer at age 80 in father, prostate cancer at age 80 in maternal grandfather. Took estrogen for 1 month. 3D TOMOSYNTHESIS WAS PERFORMED. [facility] for [facility]%. Volpara breast density a. Digital Woman Screen Mammo: July 09, 2020 - Exam #: [id number] Bilateral CC and MLO view(s) were taken. Technologist: Estrella Aleman, Technologist Prior study comparison: April 09, 2019, bilateral digital woman screen mammo performed at [facility]. March 22, 2018, bilateral digital woman screen mammo performed at [facility]. FINDINGS: There are scattered fibroglandular densities. There has been no change in the appearance of the mammogram from the prior studies. There is a mild amount of residual fibroglandular tissue which is fairly symmetric. There is no interval development of dominant mass, architectural distortion, or clustered microcalcification suggestive of malignancy. Assessment: BI-RADS/ACR category 1 mammogram. Negative Mammogram. Recommendation Routine screening mammogram in 1 year (for women over age 40). This mammogram was interpreted with the aid of an FDA-approved computer-aided dectection system. Electronically Signed By: David Jeff MD 07/09/20 [id number]
== END ==
LOC: M WHC 12:54
PROVIDERS: ATTEND Nurse Practitioner Adult Health
DX: Z12.31 Encounter for screening mammogram for malignant neoplasm of breast (principal)

== ENCOUNTER → 2020-07-16 | Outpatient (REF) | payer MEDICARE ==
[2020-07-16 17:55] LABS: HEMATOCRIT 38.1 % (36.0-47.0); HEMOGLOBIN 11.7 g/dl (12.0-15.5); MEAN CORPUSCULAR HEMOGLOBIN 25.8 pg (27.0-33.0); MEAN CORPUSCULAR HGB CONC 30.7 g/dl (32.0-36.5); MEAN CORPUSCULAR VOLUME 84.1 fl (80.0-96.0); PLATELET COUNT, AUTOMATED 179 10^3/uL (150-450); RED BLOOD COUNT 4.53 10^6/uL (4.00-5.40); WHITE BLOOD COUNT 1.1 10^3/uL (4.0-10.0)
[2020-07-16 18:27] LABS: ANISOCYTOSIS 1+; ATYPICAL LYMPH 2 % (0-5); EOSINOPHILS 1 % (0-3); LYMPHOCYTES 55 % (16-44); METAMYELOCYTES 2 % (0-0); MONOCYTES 34 % (0-5); NEUTROPHILS 4 % (28-66); PLATELET ESTIMATE NORMAL (NORMAL)
[2020-07-16 18:28] LABS: HYPOCHROMASIA 1+
== END ==
LOC: M LABDRWAD 17:25
PROVIDERS: ATTEND Specialist
DX: Z51.81 Encounter for therapeutic drug level monitoring (principal)

== ENCOUNTER → 2020-10-16 | Outpatient (REF) | payer MEDICARE ==
[~2020-10-16] MED LIST changes: +D31000TA2 PO; +MONT10TA10 PO; -MONT10TA4 PO
[2020-10-16 17:08] LABS: EOS # 0.1 10^3/uL (0.0-0.5); EOS % 4.6 % (0.0-3.0); HEMATOCRIT 36.9 % (36.0-47.0); HEMOGLOBIN 11.3 g/dl (12.0-15.5); LYMPH # 0.4 10^3/uL (1.5-5.0); LYMPH % 33.3 % (24.0-44.0); MEAN CORPUSCULAR HEMOGLOBIN 24.5 pg (27.0-33.0); MEAN CORPUSCULAR HGB CONC 30.6 g/dl (32.0-36.5); MEAN CORPUSCULAR VOLUME 79.9 fl (80.0-96.0); MONO # 0.4 10^3/uL (0.0-0.8); MONO % 34.3 % (0.0-5.0); NEUTROPHILS % 26.9 % (36.0-66.0); PLATELET COUNT, AUTOMATED 175 10^3/uL (150-450); RED BLOOD COUNT 4.62 10^6/uL (4.00-5.40); WHITE BLOOD COUNT 1.1 10^3/uL (4.0-10.0)
[2020-10-16 17:12] LABS: NEUTROPHILS # 0.3 10^3/uL (1.5-8.5)
== END ==
LOC: M LABDRWAD 16:08
PROVIDERS: ATTEND Internal Medicine Rheumatology
DX: Z79.899 Other long term (current) drug therapy (principal); M05.79 Rheumatoid arthritis with rheumatoid factor of multiple sites without organ or systems involvement

== ENCOUNTER → 2020-11-11 | Outpatient (REF) | payer MEDICARE ==
[2020-11-11 16:33] LABS: EOS % 0.8 % (0.0-3.0); HEMATOCRIT 40.4 % (36.0-47.0); HEMOGLOBIN 12.1 g/dl (12.0-15.5); LYMPH # 0.6 10^3/uL (1.5-5.0); LYMPH % 22.2 % (24.0-44.0); MONO # 0.3 10^3/uL (0.0-0.8); MONO % 11.7 % (2.0-8.0); NEUTROPHILS # 1.7 10^3/uL (1.5-8.5); NEUTROPHILS % 65.3 % (36.0-66.0); PLATELET COUNT, AUTOMATED 180 10^3/uL (150-450); RED BLOOD COUNT 5.05 10^6/uL (4.00-5.40); WHITE BLOOD COUNT 2.6 10^3/uL (4.0-10.0)
== END ==
LOC: M LABDRWAD 14:19
PROVIDERS: ATTEND Internal Medicine Rheumatology
DX: Z51.81 Encounter for therapeutic drug level monitoring (principal); Z79.899 Other long term (current) drug therapy; M05.79 Rheumatoid arthritis with rheumatoid factor of multiple sites without organ or systems involvement

== ENCOUNTER → 2020-12-17 | Outpatient (REF) | payer MEDICARE | LOC: M SFHCPLAZ 11:18 → M SFHCADAM 11:20 | PROVIDERS: ATTEND Nurse Practitioner Adult Health | DX: E55.9 Vitamin D deficiency, unspecified (principal); E11.9 Type 2 diabetes mellitus without complications; Z79.899 Other long term (current) drug therapy ==

== ENCOUNTER → 2020-12-17 | Outpatient (REF) | payer MEDICARE ==
[2020-12-17 13:08] LABS: EOS % 2.4 % (0.0-3.0); HEMATOCRIT 39.1 % (36.0-47.0); HEMOGLOBIN 11.6 g/dl (12.0-15.5); LYMPH # 0.6 10^3/uL (1.5-5.0); LYMPH % 37.6 % (24.0-44.0); MEAN CORPUSCULAR HEMOGLOBIN 23.9 pg (27.0-33.0); MEAN CORPUSCULAR HGB CONC 29.7 g/dl (32.0-36.5); MEAN CORPUSCULAR VOLUME 80.6 fl (80.0-96.0); MONO # 0.3 10^3/uL (0.0-0.8); MONO % 15.9 % (2.0-8.0); NEUTROPHILS % 44.1 % (36.0-66.0); PLATELET COUNT, AUTOMATED 178 10^3/uL (150-450); RED BLOOD COUNT 4.85 10^6/uL (4.00-5.40); WHITE BLOOD COUNT 1.7 10^3/uL (4.0-10.0)
[2020-12-17 13:11] LABS: NEUTROPHILS # 0.8 10^3/uL (1.5-8.5)
== END ==
LOC: M LABDRWAD 12:49
PROVIDERS: ATTEND Internal Medicine Rheumatology
DX: M05.79 Rheumatoid arthritis with rheumatoid factor of multiple sites without organ or systems involvement (principal); Z79.899 Other long term (current) drug therapy

== ENCOUNTER 2021-01-13 12:10 | Inpatient (IN) | payer MEDICARE ==
[~2021-01-13] VITALS: Ht 157.5 cm; Wt 83.3 kg
[2021-01-13] MEDS ORDERED: ONDANSETRON 4MG/2ML VIAL IV ONE (12:35)
[2021-01-13 13:01] LABS: HEMATOCRIT 41.6 % (36.0-47.0); MEAN CORPUSCULAR HEMOGLOBIN 24.6 pg (27.0-33.0); MEAN CORPUSCULAR HGB CONC 31.3 g/dl (32.0-36.5); MEAN CORPUSCULAR VOLUME 78.6 fl (80.0-96.0); PLATELET COUNT, AUTOMATED 196 10^3/uL (150-450); RED BLOOD COUNT 5.29 10^6/uL (4.00-5.40); WHITE BLOOD COUNT 1.4 10^3/uL (4.0-10.0)
[2021-01-13 13:29] LABS: ATYPICAL LYMPH 10 % (0-5); LYMPHOCYTES 52 % (16-44); MONOCYTES 35 % (0-5); NEUTROPHILS 3 % (28-66)
[2021-01-13 13:34] LABS: PLATELET ESTIMATE NORMAL (NORMAL)
[2021-01-13 13:50] LABS: ALBUMIN 3.7 GM/DL (3.2-5.2); ALT/SGPT 17 U/L (12-78); BILIRUBIN,DIRECT 0.2 MG/DL (0.0-0.2); BILIRUBIN,TOTAL 0.8 MG/DL (0.2-1.0); BLOOD UREA NITROGEN 21 MG/DL (7-18); CALCIUM LEVEL 9.3 MG/DL (8.8-10.2); CARBON DIOXIDE LEVEL 23 MEQ/L (21-32); CHLORIDE LEVEL 106 MEQ/L (98-107); CREATININE FOR GFR 0.94 MG/DL (0.55-1.30); GLOMERULAR FILTRATION RATE > 60.0 (>39); GLUCOSE, FASTING 166 MG/DL (70-100); LIPASE 57 U/L (73-393); POTASSIUM SERUM 4.1 MEQ/L (3.5-5.1); SODIUM LEVEL 139 MEQ/L (136-145); TOTAL PROTEIN 8.3 GM/DL (6.4-8.2)
[2021-01-13 13:52] LABS: CK-MB VALUE MASS < 1.0 NG/ML (<3.6); CPK CREATINE PHOSPHOKINASE 38 U/L (26-192); MB/CK RELATIVE INDEX 2.63 (< OR =4); TROPONIN I < 0.02 NG/ML (< 0.10)
[2021-01-13] MEDS: NS 1,000 ML IV SCH ×3 (13:57→21:46)
[2021-01-13] MEDS: GASTROGRAFIN SOLUTION 30ML PO SCH ×2 (14:35→15:05)
[2021-01-13] MEDS ORDERED: KETOROLAC 30 MG/ML 1ML VIAL IV ONE (14:39)
[2021-01-13] MEDS ORDERED: ISOVUE-370 76% 100ML VIAL As Ordered ONE (15:27)
[2021-01-13 15:47] LABS: CK-MB VALUE MASS < 1.0 NG/ML (<3.6); CPK CREATINE PHOSPHOKINASE 34 U/L (26-192); MB/CK RELATIVE INDEX 2.94 (< OR =4); TROPONIN I < 0.02 NG/ML (< 0.10)
--- NOTE | 2021-01-13 15:57 | REP ---
INDICATION: abd pain vomiting refused oral contrast. COMPARISON: Comparison CT study is from January 17, 2020.. TECHNIQUE: Helical scanning was acquired and 4 mm axial images are re-formatted. Coronal and sagittal MPR images were generated and reviewed. The contrast enhancement dose is 100 mL of intravenous Isovue 370. 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 A right hip arthroplasty is noted in place. Axial CT images demonstrate that the lung bases are essentially clear. There is no evidence of ascites or pleural effusion. A small to moderate sliding-type hiatal hernia is noted. Normal adrenal glands are seen. There is an accessory splenule in the left upper quadrant anteriorly. No focal hepatic or splenic lesion is seen. The gallbladder is unremarkable. No abnormality is noted in the pancreas. The kidneys enhance symmetrically and are morphologically intact. No retroperitoneal mass or adenopathy is seen. Normal caliber aorta is seen with some calcification. A normal retrocecal appendix is observed. The small bowel is dilated in the mid and distal ileal loops. There is a point of transition in the distal ileum, prox well proximal to the ileocecal valve. There is some stool in the right colon. Left colon is empty. No colonic distention is seen. There is left colonic diverticulosis. There is some mesenteric edema and minimal fluid in the mesentery of the dilated small bowel loops in the central abdomen. The point of transition is in the right lower quadrant ileum but no mass or obvious extrinsically lesion is appreciated here. There is no abdominal wall defect visible. No free air or abscess is appreciated. IMPRESSION: Small-bowel obstruction pattern with point of transition in the right lower quadrant in the mid to distal ileum. Etiology uncertain. There is left colonic diverticulosis. Normal appendix. Hiatal hernia. Otherwise negative. <Electronically signed by Huan Branham > 01/13/21 [id number]
[2021-01-13] MEDS ORDERED: D-MA500C2 PO (16:41)
[2021-01-13] MEDS ORDERED: PRED5TA PO (16:41)
[2021-01-13] MEDS ORDERED: PROT20TA11 PO (16:41)
[2021-01-13] MEDS ORDERED: AMLO1TAB24 PO (16:41)
--- NOTE | 2021-01-13 17:53 | ECGEPIP ---
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
--- NOTE | 2021-01-13 17:54 | ECGEPIP ---
[facility] - ED Test Date: 2021-01-13 Pat Name: JEANNE HARO Department: Room: - Gender: Female Contract Coordinator: : 1945 Requested By: ALAN Mcmahon Order Number: [id number] Reading MD: Joana Graff Measurements Intervals [place] Rate: 105 P: 34 [place]: 146 QRS: -8 QRSD: 72 T: 9 QT: 348 QTc: 459 Interpretive Statements Sinus tachycardia Anterior infarct , age undetermined NSTTW abnormalities similar 01/13/21 12:55 Electronically Signed on 01-13-2021 17:54:35 EDT by Joana Graff
[2021-01-13] MEDS ORDERED: KETOROLAC 30 MG/ML 1ML VIAL IV PRN (19:00)
[2021-01-13] MEDS ORDERED: ONDANSETRON 4MG/2ML VIAL IV PRN (19:00)
--- NOTE | 2021-01-13 19:06 | HPEPDOC ---
General Date of Admission 01/13/21 Date of Service: January 13, 2021 Chief Complaint The patient is a 75-year-old female admitted with a reason for visit of Abd Pain. Source: Patient, RN/MD History of Present Illness 75 year old female presented to ED with 1 day history of abdominal pain and multiple episodes of vomiting. Patient reports that she was feeling a little bloated for the past 3 to 4 days but was having small hard bowel movements which is not unusual for her. She was eating normally. Then she started having severe crampy abdominal pain across the center of the abdomen and around the umbilicus since last night. He pain was 8/10 in intensity when the cramps came then it would go away. Then from early this morning she started vomiting and vomiting innumerable times about every 1/2 hour with green bile coming out associated with worsened abdominal pain. In the ED CT abdomen showed SBO with dilated ileal loops with transition point in transition in the mid to distal ileum, well proximal to the ileocecal valve. She was admitted for SBO. Home Medications Scheduled Adalimumab (Humira) 40 Mg/0.8 Ml Kit, 40 MG SC Q2WK, (Reported) EVERY OTHER TUESDAY Amlodipine Besylate (Amlodipine Besylate) 5 Mg Tablet, 5 MG PO DAILY, (Reported) Cholecalciferol (Vitamin D3) (Vitamin D3) 1,000 Unit Tablet, 1,000 UNITS PO DAILY, (Reported) D-Mannose (Azo D-Mannose) 500 Mg Capsule, 500 MG PO DAILY, (Reported) Docusate Sodium (Stool Softener) 100 Mg Cap, 100 MG PO BID, (Reported) Levocetirizine Dihydrochloride (Levocetirizine Dihydrochloride) 5 Mg Tab, 5 MG PO QHS, (Reported) Levothyroxine Sodium (Synthroid) 88 Mcg Tab, 88 MCG PO DAILY, (Reported) Metoprolol Succinate (Metoprolol Succinate) 50 Mg Tab, 50 MG PO QHS, (Reported) Montelukast Sodium (Montelukast Sodium) 10 Mg Tab, 10 MG PO QHS, (Reported) Pantoprazole Sodium (Protonix) 20 Mg Tablet.dr, 20 MG PO DAILY, (Reported) Prednisone (Prednisone) 5 Mg Tablet, 5 MG PO DAILY, (Reported) Allergies Coded Allergies: codeine (Verified Allergy, Severe, sob, increased pulse, 12/07/18) esomeprazole (Verified Allergy, Intermediate, rash, hives, 12/07/18) erythromycin base (Verified Allergy, Unknown, 12/07/18) Sulfa (Sulfonamide Antibiotics) (Verified Adverse Reaction, Intermediate, n/v, 12/07/18) morphine (Verified Adverse Reaction, Intermediate, n/v, 12/07/18) Cephalosporins (Verified Adverse Reaction, Mild, fever, 12/07/18) azithromycin (Verified Adverse Reaction, Mild, fever, 12/07/18) sitagliptin (Verified Adverse Reaction, Unknown, RA FLAREUP, 01/13/21) Past Medical History Medical History Rheumatoid arthritis diagnosed at the age of 28, 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 tubal ligation hypothyroidism hypertension. OSTEOARTHRITIS HEMORRHOIDS ESOPHAGEAL REFLUX, HYPERLIPIDEMIA, DOESN'T TOLERATE STATINS D/T JOINT/MUSCLE PAINS ANAL FISSURE SEASONAL ALLERGIES ACTINIC KERATOSES SEBORRHEIC KERATOSES MATA ANGIOMA Family History The patient's father at age of 80 from complications from pancreatic cancer. The patient's mother at age of 93 from complications of dementia. DAUGHTER TYPE 1 IDDM GRANDAUGHTER TYPE 1 IDDM, Social History * Smoker: non-smoker Alcohol: rarely (abut 1 drink a month) A-FIB/CHADSVASC A-FIB History Current/History of A-Fib/PAF?: No Review of Systems Constitutional: Denies: Chills, Fever, Night Sweats Eyes: Denies: Pain, Vision change ENT: Denies: Head Aches, Ear Pain, Dysphagia Skin: Denies: Rash, Lesions, Breakdown Pulmonary: Denies: Dyspnea, Cough Cardiovascular: Denies: Chest Pain, Palpitations, Orthopnea, Paroxysmal Noc. Dyspnea, Lt Headedness Gastrointestinal: Reports: Nausea, Vomiting, Abdominal Pain, Constipation Genitourinary: Denies: Dysuria, Frequency, Incontinence, Retention Hematologic: Denies: Bruising, Bleeding Excessively Musculoskeletal: Reports: Back Pain, Joint Pain Neurological: Denies: Weakness, Numbness, Change in speech, Confusion Physical Examination General Exam: Positive: Alert, Cooperative, No Acute Distress Eye Exam: Positive: PERRLA, Conjunctiva & lids normal, EOMI; Negative: Sclera icteric ENT Exam: Positive: Atraumatic, Mucous membr. moist/pink, Pharynx Normal Neck Exam: Positive: Supple; Negative: JVD, thyromegaly Chest Exam: Positive: Clear to auscultation, Normal air movement Heart Exam: Positive: Tachycardic, Regular Rhythm, Normal S1, Normal S2; Negative: Murmurs, Rubs Telemetry: Positive: Sinus, Tachycardia Abdomen Exam: Positive: BS Hypoactive, Soft, Tenderness (periumbilical region), Other (distenson, no guarding or rigidity or rebound) Extremity Exam: Negative: Clubbing, Cyanosis, Edema Skin Exam: Positive: Nl turgor and temperature; Negative: Breakdown, Lesion Vital Signs Vital Signs Date Time Temp Pulse Resp B/P (MAP) Pulse Ox O2 Delivery O2 Flow Rate FiO2 01/13/21 12:24 97.8 103 18 161/82 96 Room Air Laboratory Data Labs 24H Laboratory Tests 2 01/13/21 12:37: Neutrophils (%) (Auto) , Neutrophils # (Auto) , Nucleated Red Blood Cells % (auto) 0.0, Neutrophils 3L, Lymphocytes (Manual) 52H, Monocytes (Manual) 35H, Atypical Lymphocytes 10H, Red Blood Cell Morphology NORMAL, Platelet Estimate NORMAL, Anion Gap 10, Glomerular Filtration Rate > 60.0, Lactic Acid Level 2.4*H, Calcium Level 9.3, Total Bilirubin 0.8, Direct Bilirubin 0.2, Aspartate Amino Transf (AST/SGOT) 12, Alanine Aminotransferase (ALT/SGPT) 17, Alkaline Phosphatase 100, Total Protein 8.3H, Albumin 3.7, Albumin/Globulin Ratio 0.8L, Lipase 57L 01/13/21 12:38: Total Creatine Kinase 38, Creatine Kinase MB < 1.0, Creatine Kinase MB Relative Index 2.63, Troponin I < 0.02 01/13/21 14:50: Total Creatine Kinase 34, Creatine Kinase MB < 1.0, Creatine Kinase MB Relative Index 2.94, Troponin I < 0.02 CBC/BMP Laboratory Tests 01/13/21 12:37 Assessment/Plan 75 year old female presented to ED with 1 day history of abdominal pain and multiple episodes of vomiting. Patient reports that she was feeling a little bloated for the past 3 to 4 days but was having small hard bowel movements which is not unusual for her. She was eating normally. Then she started having severe crampy abdominal pain across the center of the abdomen and around the umbilicus since last night. He pain was 8/10 in intensity when the cramps came then it would go away. Then from early this morning she started vomiting and vomiting innumerable times about every 1/2 hour with green bile coming out associated with worsened abdominal pain. In the ED CT abdomen showed SBO with dilated ileal loops with transition point in transition in the mid to distal ileum, well proximal to the ileocecal valve. She was admitted for SBO. SBO NPO, IVF, zofran, morphine for pain control Tried placement of NG tube but failed. Blocked nostril in the left and there was epistaxis fromt eh right and would not go below 45 cm likely got curled up in throat. She started coughing, crying and would not allow trying again. She does not have much secretions so could not do swallowing movements. When we try nex t will gie sips of water Discussed with Dr Moffett will watch overnight and if distention does not improve will try again tomorrow morning. Sinus tachycardia due to pain and vomiting Rheumatoid arthritis diagnosed at the age of 28, on prednisone and immunomodulators. 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 metoprolol Hiatal hernia PPI Diverticulosis on the left colon Plan / VTE VTE Prophylaxis Ordered?: Yes SYLVIE CHING MD January 13, 2021 17:26
[2021-01-13 20:30] LABS: RSV AMPLIFICATION NEGATIVE (NEGATIVE)
[2021-01-13] MEDS ORDERED: FILGRASTIM 480 MCG/0.8 ML SYRINGE (J1442) SC ONE (21:00)
[2021-01-13] MEDS: PANTOPRAZOLE 40MG VIAL (C9113 PER 1) IV SCH (21:35)
[2021-01-13] MEDS: METOPROLOL TART 25 MG TABLET PO SCH (21:36)
[2021-01-13 22:58] VITALS: BP 151/89
[2021-01-14] MEDS: NS 1,000 ML IV SCH ×3 (00:25→19:33)
--- NOTE | 2021-01-14 05:27 | CR.PDOC ---
General Surgery Consultation Date of Consultation 01/14/21 History and Physical CONSULT REPORT FOR: Dr. Sondra Boykin (hospitalist service) REASON FOR CONSULTATION: vomiting, small bowel obstruction HISTORY OF PRESENT ILLNESS: Patient is a 75-year-old female who presented herself to the emergency room reporting sudden onset of crampy mid abdominal pain that started roughly about 9 PM yesterday evening followed a a few hours after with waves of nausea and vomiting. She reports nonbloody, bilious vomiting. This persisted through early in the morning prompting her to go to the emergency room. During her stay in the emergency room she has not vomited though she still feels the waves of abdominal cramping. It seems she has frequent or prior episodes of nausea and occasional vomiting she has Zofran at home which she took initially was alleviating her symptoms. In the emergency room she was evaluated with imaging showing possibility of a bowel obstruction with transition point over the right lower quadrant area. 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 She is on 5 mg of prednisone chronically. She denies any prior episodes of bowel obstruction. She only has tubal ligation as her intra-abdominal surgery. She has had prior colonoscopies for screening. She reports fairly regular bowel movements, at least once daily though she has been feeling constipated for the past 3 or 4 days. She had a small bowel movement yesterday morning. She does not note spontaneous passage of flatus today. 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 tubal ligation hypothyroidism hypertension. OSTEOARTHRITIS HEMORRHOIDS ESOPHAGEAL REFLUX, HYPERLIPIDEMIA, DOESN'T TOLERATE STATINS D/T JOINT/MUSCLE PAINS ANAL FISSURE SEASONAL ALLERGIES ACTINIC KERATOSES SEBORRHEIC KERATOSES MATA ANGIOMA Family History The patient's father at age of 80 from complications from pancreatic cancer. The patient's mother at age of 93 from complications of dementia. DAUGHTER TYPE 1 IDDM GRANDAUGHTER TYPE 1 IDDM, ALLERGIES: Please see below. HOME MEDICATIONS: Please see below. REVIEW OF SYSTEMS: GENERAL: is on her usual state of health prior to start of her acute symptoms, denies any unexplained weight loss, fevers or chills. NECK: Denies any neck pain CARDIOVASCULAR: Denies chest pain and palpitations. MUSCULOSKELETAL: reports history of joint pains secondary to RA/OA. On humira. SKIN: Denies rash. NEUROLOGIC: Denies headache, stroke and transient ischemic attack. PSYCHIATRIC: Denies anxiety and depression. ENDOCRINE: Denies thyroid disease. HEMATOLOGY/ONCOLOGY: Denies bleeding or clotting disorder.not on anticoagulants HEART: Denies any chest pains, palpitations, paroxysmal dyspnea, orthopnea. PULMONARY: Denies chronic cough, dyspnea and wheezing. GASTROINTESTINAL: has history of GERD, denies gastroparesis, though would have some occasional episode of nausea. GENITOURINARY: Denies dysuria, frequency, hematuria and nocturia. ENDOCRINE: Denies polydipsia, polyphagia, polyuria, heat or cold intolerance. INFECTIOUS: Denies any recent upper respiratory tract infection, UTI, need for use of antibiotics. NUTRITION: denies unexplained weight loss PHYSICAL EXAMINATION: VITALS SIGNS: Please see below. GENERAL APPEARANCE:Patient seen reclined on her stretcher. She generally looks comfortable, though I do notice occasional burping, need for her to stop talking when she feels a wave of nausea. Reports discomfort to be tolerable but it does comes in waves and feels some crampy pain. Does not appear chronically ill. SKIN: warm, dry, dry lips. HEENT: Normocephalic, atraumatic. [place] palpebral conjunctiva, anicteric sclerae. mildly dry lips. NECK: short supple, no thyromegaly. LUNGS: Clear to auscultation bilaterally. No wheezing appreciated. HEART: No chest wall abnormalities. Regular rate and rhythm with no murmurs appreciated. ABDOMEN: Abdomen is round, obese. She appears moderately distended, soft. No noticeable big hernias. Mild discomfort on deep palpation periumbilically, less so rlq. No rebound or guarding EXTREMITIES: no significant deformities, edema ANCILLARIES: . LABORATORY DATA: Please see below. IMAGING STUDIES: CT ABDOMEN AND PELVIS And reviewed images of the recently acquired CT abdomen and pelvis. His that show markedly distended proximal loops of bowel with tapering to the terminal ileum. There is a loop of bowel over the right lower quadrant area that shows a abrupt kinked or some mild thickening. No free air. No free fluid. No signs of bowel ischemia.. IMPRESSION AND PLAN: small bowel obstruction neutropenia moderate obesity bmi 33.6 Her symptoms as well as imaging is consistent with some sort of a mechanical obstruction with a transition point at the right lower quadrant area. She does not show any severe inflammatory response from this. No signs of threatened bowel or ischemic bowel on imaging as well as on clinical examination. No peritoneal symptoms. He does have some mild dehydration with slight elevation of her lactic acid. She has been given IV fluid bolus as well as IV fluid hydration. She only has a history of a tubal ligation as her surgical history. She still feels moderately distended on my examination. Suggest placing a nasogastric tube to continue bowel decompression which I think will help her be more comfortable and may resolve the obstruction. I will follow her up with serial examinations as well as serial x-rays. If this does not resolve within 48-72 hours, may need surgical intervention. I discussed this with the patient and answered her questions. Vital Signs Vital Signs Date Time Temp Pulse Resp B/P (MAP) Pulse Ox O2 Delivery O2 Flow Rate FiO2 01/13/21 22:58 98.9 106 18 151/89 (109) 98 Room Air I&Os I&O- Last 24 Hours up to 6 AM 01/14/21 06:00 Intake Total 1150 ml Output Total 0 ml Balance 1150 ml Laboratory Data Labs 24H Laboratory Tests 2 01/13/21 12:37: Neutrophils (%) (Auto) , Neutrophils # (Auto) , Nucleated Red Blood Cells % (auto) 0.0, Neutrophils 3L, Lymphocytes (Manual) 52H, Monocytes (Manual) 35H, Atypical Lymphocytes 10H, Red Blood Cell Morphology NORMAL, Platelet Estimate NORMAL, Anion Gap 10, Glomerular Filtration Rate > 60.0, Lactic Acid Level 2.4*H, Calcium Level 9.3, Total Bilirubin 0.8, Direct Bilirubin 0.2, Aspartate Amino Transf (AST/SGOT) 12, Alanine Aminotransferase (ALT/SGPT) 17, Alkaline Phosphatase 100, Total Protein 8.3H, Albumin 3.7, Albumin/Globulin Ratio 0.8L, Lipase 57L 01/13/21 12:38: Total Creatine Kinase 38, Creatine Kinase MB < 1.0, Creatine Kinase MB Relative Index 2.63, Troponin I < 0.02 01/13/21 14:50: Total Creatine Kinase 34, Creatine Kinase MB < 1.0, Creatine Kinase MB Relative Index 2.94, Troponin I < 0.02 01/13/21 19:27: Coronavirus (COVID-19)(PCR) NEGATIVE, Influenza Type A (RT-PCR) NEGATIVE, Influ said[place] Type B (RT-PCR) NEGATIVE, Respiratory Syncytial Virus (PCR) NEGATIVE 01/13/21 19:57: Lactic Acid Followup at 4 Hours 1.8 01/13/21 23:06: Bedside Glucose (Misc Panel) 125H CBC/BMP Laboratory Tests 01/13/21 12:37 Home Medications Scheduled Adalimumab (Humira) 40 Mg/0.8 Ml Kit, 40 MG SC Q2WK, (Reported) EVERY OTHER TOR Amlodipine Besylate (Amlodipine Besylate) 5 Mg Tablet, 5 MG PO DAILY, (Reported) Cholecalciferol (Vitamin D3) (Vitamin D3) 1,000 Unit Tablet, 1,000 UNITS PO DAILY, (Reported) D-Mannose (Azo D-Mannose) 500 Mg Capsule, 500 MG PO DAILY, (Reported) Docusate Sodium (Stool Softener) 100 Mg Cap, 100 MG PO BID, (Reported) Levocetirizine Dihydrochloride (Levocetirizine Dihydrochloride) 5 Mg Tab, 5 MG PO QHS, (Reported) Levothyroxine Sodium (Synthroid) 88 Mcg Tab, 88 MCG PO DAILY, (Reported) Metoprolol Succinate (Metoprolol Succinate) 50 Mg Tab, 50 MG PO QHS, (Reported) Montelukast Sodium (Montelukast Sodium) 10 Mg Tab, 10 MG PO QHS, (Reported) Pantoprazole Sodium (Protonix) 20 Mg Tablet.dr, 20 MG PO DAILY, (Reported) Prednisone (Prednisone) 5 Mg Tablet, 5 MG PO DAILY, (Reported) Allergies Coded Allergies: codeine (Verified Allergy, Severe, sob, increased pulse, 12/07/18) esomeprazole (Verified Allergy, Intermediate, rash, hives, 12/07/18) erythromycin base (Verified Allergy, Unknown, 12/07/18) Sulfa (Sulfonamide Antibiotics) (Verified Adverse Reaction, Intermediate, n/v, 12/07/18) morphine (Verified Adverse Reaction, Intermediate, n/v, 12/07/18) Cephalosporins (Verified Adverse Reaction, Mild, fever, 12/07/18) azithromycin (Verified Adverse Reaction, Mild, fever, 12/07/18) sitagliptin (Verified Adverse Reaction, Unknown, RA FLAREUP, 01/13/21) KEVIN FOLEY MD January 14, 2021 05:27
[2021-01-14 06:00] VITALS: BP 150/80
[2021-01-14 06:16] LABS: HEMATOCRIT 34.2 % (36.0-47.0); MEAN CORPUSCULAR HGB CONC 31.3 g/dl (32.0-36.5); MEAN CORPUSCULAR VOLUME 79.9 fl (80.0-96.0); PLATELET COUNT, AUTOMATED 173 10^3/uL (150-450); RED BLOOD COUNT 4.28 10^6/uL (4.00-5.40); WHITE BLOOD COUNT 1.5 10^3/uL (4.0-10.0)
[2021-01-14 06:17] LABS: HEMOGLOBIN 10.7 g/dl (12.0-15.5)
[2021-01-14] MEDS: LEVOTHYROXINE 88MCG TABLET (0.088 MG) PO SCH (06:23)
[2021-01-14 06:30] LABS: ATYPICAL LYMPH 3 % (0-5); EOSINOPHILS 1 % (0-3); LYMPHOCYTES 55 % (16-44); METAMYELOCYTES 1 % (0-0); MONOCYTES 36 % (0-5); NEUTROPHILS 4 % (28-66)
[2021-01-14 06:32] LABS: CALCIUM LEVEL 8.1 MG/DL (8.8-10.2); CREATININE FOR GFR 1.02 MG/DL (0.55-1.30); GLOMERULAR FILTRATION RATE 56.2 (>39); PLATELET ESTIMATE NORMAL (NORMAL); POTASSIUM SERUM 4.3 MEQ/L (3.5-5.1)
[2021-01-14] MEDS: predniSONE 5 MG TAB PO SCH (08:17)
[2021-01-14] MEDS: METOPROLOL TART 25 MG TABLET PO SCH ×2 (08:17→21:21)
--- NOTE | 2021-01-14 09:41 | REP ---
INDICATION: ffup sbo. COMPARISON: CT 01/13/2021. TECHNIQUE: Two views of abdomen and pelvis. FINDINGS: There are moderately dilated small bowel loops in the lower abdomen. Mild scattered air and fecal material seen throughout the colon. Excreted IV contrast is seen in a mildly distended bladder. There are diffuse degenerative changes of the spine. There is a total right hip prosthesis. IMPRESSION: Moderately dilated small bowel in the lower abdomen. This correlates with the finding of small bowel obstruction on the CT exam 01/13/2021. <Electronically signed by David Jeff > 01/14/21 0937
--- NOTE | 2021-01-14 11:51 | IPNPDOC ---
Subjective Date Seen The patient was seen on 01/14/21. Subjective Chief Complaint/HPI Denies any abdominal pain this am. No further vomiting after admission. Having small amounts of flatus but no bowel movement. No fever or chills. Objective Physical Examination General Exam: Positive: Alert, Cooperative, No Acute Distress Eye Exam: Positive: PERRLA, Conjunctiva & lids normal, EOMI; Negative: Sclera icteric ENT Exam: Positive: Atraumatic, Mucous membr. moist/pink, Pharynx Normal Neck Exam: Positive: Supple; Negative: JVD, thyromegaly Chest Exam: Positive: Clear to auscultation, Normal air movement Heart Exam: Positive: Rate Normal, Regular Rhythm, Normal S1, Normal S2; Negative: Murmurs, Rubs Telemetry: Positive: Sinus, Tachycardia Abdomen Exam: Positive: Normal bowel sounds, Soft, Other (still mildly distended. ); Negative: Tenderness Extremity Exam: Negative: Clubbing, Cyanosis, Edema Skin Exam: Positive: Nl turgor and temperature; Negative: Breakdown, Lesion Assessment /Plan Assessment 75 year old female presented to ED with 1 day history of abdominal pain and multiple episodes of vomiting. Patient reports that she was feeling a little bloated for the past 3 to 4 days but was having small hard bowel movements which is not unusual for her. She was eating normally. Then she started having severe crampy abdominal pain across the center of the abdomen and around the umbilicus since last night. He pain was 8/10 in intensity when the cramps came then it would go away. Then from early this morning she started vomiting and vomiting innumerable times about every 1/2 hour with green bile coming out associated with worsened abdominal pain. In the ED CT abdomen showed SBO with dilated ileal loops with transition point in transition in the mid to distal ileum, well proximal to the ileocecal valve. She was admitted for SBO. SBO NPO, IVF, zofran, morphine for pain control Tried placement of NG tube but failed. Blocked nostril in the left and there was epistaxis from the right and would not go below 45 cm likely got curled up in throat. She started coughing, crying and would not allow trying again. She does not have much secretions so could not do swallowing movements. If we need try again will give sips of water. Patient however adamantly refuses another ryles tube even if needed abd xray done this am. looks about the same with dilated small bowel loops in the lower abdomen. Sinus tachycardia due to pain and vomiting resolved Rheumatoid arthritis diagnosed at the age of 28, on prednisone and immunomodulators. continue prednisone. 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 metoprolol Hiatal hernia PPI Diverticulosis on the left colon Plan/VTE VTE Prophylaxis Ordered?: Yes VS, I&O, 24H, Fishbone Vital Signs/I&O Vital Signs Date Time Temp Pulse Resp B/P (MAP) Pulse Ox O2 Delivery O2 Flow Rate FiO2 01/14/21 08:17 92 150/80 01/14/21 06:00 98.3 18 98 Room Air I&O- Last 24 Hours up to 6 AM 01/14/21 05:59 Intake Total 1150 ml Output Total 0 ml Balance 1150 ml Laboratory Data 24H LABS Laboratory Tests 2 01/13/21 12:37: Neutrophils (%) (Auto) , Neutrophils # (Auto) , Nucleated Red Blood Cells % (auto) 0.0, Neutrophils 3L, Lymphocytes (Manual) 52H, Monocytes (Manual) 35H, Atypical Lymphocytes 10H, Red Blood Cell Morphology NORMAL, Platelet Estimate NORMAL, Anion Gap 10, Glomerular Filtration Rate > 60.0, Lactic Acid Level 2.4*H, Calcium Level 9.3, Total Bilirubin 0.8, Direct Bilirubin 0.2, Aspartate Amino Transf (AST/SGOT) 12, Alanine Aminotransferase (ALT/SGPT) 17, Alkaline Phosphatase 100, Total Protein 8.3H, Albumin 3.7, Albumin/Globulin Ratio 0.8L, Lipase 57L 01/13/21 12:38: Total Creatine Kinase 38, Creatine Kinase MB < 1.0, Creatine Kinase MB Relative Index 2.63, Troponin I < 0.02 01/13/21 14:50: Total Creatine Kinase 34, Creatine Kinase MB < 1.0, Creatine Kinase MB Relative Index 2.94, Troponin I < 0.02 01/13/21 19:27: Coronavirus (COVID-19)(PCR) NEGATIVE, Influenza Type A (RT-PCR) NEGATIVE, Influenza Type B (RT-PCR) NEGATIVE, Respiratory Syncytial Virus (PCR) NEGATIVE 01/13/21 19:57: Lactic Acid Followup at 4 Hours 1.8 01/13/21 23:06: Bedside Glucose (Misc Panel) 125H 01/14/21 05:39: Neutrophils (%) (Auto) , Neutrophils # (Auto) , Nucleated Red Blood Cells % (auto) 0.0, Neutrophils 4L, Lymphocytes (Manual) 55H, Monocytes (Manual) 36H, Eosinophils (Manual) 1, Metamyelocytes 1H, Atypical Lymphocytes 3, Red Blood Cell Morphology NORMAL, Platelet Estimate NORMAL, Anion Gap 6L, Glomerular Filtration Rate 56.2, Calcium Level 8.1L CBC/BMP Laboratory Tests 01/13/21 12:37 01/14/21 05:39 SYLVIE CHING MD January 14, 2021 11:51
[2021-01-14 14:00] VITALS: BP 147/78
[2021-01-14] MEDS: PANTOPRAZOLE 40MG VIAL (C9113 PER 1) IV SCH (18:13)
[2021-01-14 22:00] VITALS: BP 149/69
[2021-01-15] MEDS: LEVOTHYROXINE 88MCG TABLET (0.088 MG) PO SCH (05:39)
[2021-01-15] MEDS: NS 1,000 ML IV SCH (05:40)
[2021-01-15 06:00] VITALS: BP 156/71
[2021-01-15 06:48] LABS: HEMATOCRIT 33.9 % (36.0-47.0); HEMOGLOBIN 10.6 g/dl (12.0-15.5); MEAN CORPUSCULAR HGB CONC 31.3 g/dl (32.0-36.5); PLATELET COUNT, AUTOMATED 158 10^3/uL (150-450); RED BLOOD COUNT 4.24 10^6/uL (4.00-5.40); WHITE BLOOD COUNT 1.3 10^3/uL (4.0-10.0)
[2021-01-15 07:17] LABS: BLOOD UREA NITROGEN 15 MG/DL (7-18); CALCIUM LEVEL 8.5 MG/DL (8.8-10.2); CARBON DIOXIDE LEVEL 21 MEQ/L (21-32); CHLORIDE LEVEL 112 MEQ/L (98-107); CREATININE FOR GFR 0.76 MG/DL (0.55-1.30); GLOMERULAR FILTRATION RATE > 60.0 (>39); GLUCOSE, FASTING 79 MG/DL (70-100); POTASSIUM SERUM 3.9 MEQ/L (3.5-5.1); SODIUM LEVEL 140 MEQ/L (136-145)
[2021-01-15 07:49] LABS: ANISOCYTOSIS 1+; ATYPICAL LYMPH 1 % (0-5); BASOPHILS 2 % (0-1); EOSINOPHILS 2 % (0-3); LYMPHOCYTES 40 % (16-44); MONOCYTES 33 % (0-5); NEUTROPHILS 22 % (28-66); PLATELET ESTIMATE NORMAL (NORMAL)
[2021-01-15] MEDS ORDERED: MOM 30ML SUSPENSION UDC PO ONE (08:00)
--- NOTE | 2021-01-15 08:57 | REP ---
INDICATION: ffup sbo COMPARISON: 01/14/2021 TECHNIQUE: Supine view of the abdomen and pelvis. FINDINGS: Appearance to the small bowel is improved. Bowel gas pattern is nonspecific and without obstruction or perforation. No organomegaly. No abnormal calcifications. Skeletal structures intact. Right hip replacement again noted. IMPRESSION: Normal abdominal radiograph. <Electronically signed by Luis Escobar > 01/15/21 0853
[2021-01-15 09:00] VITALS: BP 153/74
[2021-01-15] MEDS ORDERED: DOCUSATE SODIUM 100MG CAPSULE PO SCH (09:00)
--- NOTE | 2021-01-15 10:24 | IPNPDOC ---
Subjective Date Seen The patient was seen on 01/15/21. Subjective Chief Complaint/HPI Feeling better no complaints this morning. < no abdominal pain, no nausea or vomiting, no appetite also. Objective Physical Examination General Exam: Positive: Alert, Cooperative, No Acute Distress Eye Exam: Positive: PERRLA, Conjunctiva & lids normal, EOMI; Negative: Sclera icteric ENT Exam: Positive: Atraumatic, Mucous membr. moist/pink, Pharynx Normal Neck Exam: Positive: Supple; Negative: JVD, thyromegaly Chest Exam: Positive: Clear to auscultation, Normal air movement Heart Exam: Positive: Rate Normal, Regular Rhythm, Normal S1, Normal S2; Negative: Murmurs, Rubs Telemetry: Positive: Sinus, Tachycardia Abdomen Exam: Positive: Normal bowel sounds, Soft, Other (still mildly distended. ); Negative: Tenderness Extremity Exam: Negative: Clubbing, Cyanosis, Edema Skin Exam: Positive: Nl turgor and temperature; Negative: Breakdown, Lesion Assessment /Plan Assessment 75 year old female presented to ED with 1 day history of abdominal pain and mul tiple episodes of vomiting. Patient reports that she was feeling a little bloated for the past 3 to 4 days but was having small hard bowel movements which is not unusual for her. She was eating normally. Then she started having severe crampy abdominal pain across the center of the abdomen and around the umbilicus since last night. He pain was 8/10 in intensity when the cramps came then it would go away. Then from early this morning she started vomiting and vomiting innumerable times about every 1/2 hour with green bile coming out associated with worsened abdominal pain. In the ED CT abdomen showed SBO with dilated ileal loops with transition point in transition in the mid to distal ileum, well proximal to the ileocecal valve. She was admitted for SBO. SBO seems to be resolving. Abd Xray no further dilated loops. started on clears. Sinus tachycardia due to pain and vomiting resolved Rheumatoid arthritis diagnosed at the age of 28, on prednisone and immunomodulators. continue prednisone. 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 metoprolol Hiatal hernia PPI Diverticulosis on the left colon Plan/VTE VTE Prophylaxis Ordered?: Yes VS, I&O, 24H, Fishbon Vital Signs/I&O Vital Signs Date Time Temp Pulse Resp B/P (MAP) Pulse Ox O2 Delivery O2 Flow Rate FiO2 01/15/21 09:00 98.6 90 153/74 (100) 96 Room Air 01/15/21 06:00 18 I&O- Last 24 Hours up to 6 AM 01/15/21 06:00 Intake Total 1000 ml Output Total 1000 ml Balance 0 ml Laboratory Data 24H LABS Laboratory Tests 2 01/14/21 16:44: Bedside Glucose (Misc Panel) 101 01/14/21 21:22: Bedside Glucose (Misc Panel) 82L 01/15/21 06:15: Neutrophils (%) (Auto) , Neutrophils # (Auto) , Nucleated Red Blood Cells % (auto) 0.0, Neutrophils 22L, Lymphocytes (Manual) 40, Monocytes (Manual) 33H, Eosinophils (Manual) 2, Basophils (Manual) 2H, Atypical Lymphocytes 1, Anisocytosis 1+, Platelet Estimate NORMAL 01/15/21 06:16: Anion Gap 7L, Glomerular Filtration Rate > 60.0, Calcium Level 8.5L CBC/BMP Laboratory Tests 01/15/21 06:15 01/15/21 06:16 SYLVIE CHING MD January 15, 2021 10:24
[2021-01-15] MEDS: predniSONE 5 MG TAB PO SCH (10:55)
[2021-01-15 10:56] VITALS: BP 153/74
[2021-01-15] MEDS: METOPROLOL TART 25 MG TABLET PO SCH (10:56)
--- NOTE | 2021-01-15 13:19 | IPNPDOC ---
Text Note Date of Service The patient was seen on 01/15/21. NOTE I saw the patient last night as well as this afternoon. She continues reports she is feeling well. Passing flatus though has not had any bowel movements. She refuses milk of magnesia. She does take Colace 2 tablets twice a day for her chronic constipation. She tried clears and she did okay. Vital signs stable On examination she was sitting up on the chair and looks very comfortable Abdomen is obese, soft, and we distended, not less distended than on presentation. Nontender on palpation Impression and plan Partial small bowel obstruction resolving versus acute gastroenteritis Patient's presentation consistent with partial small bowel obstruction seems to be getting better by itself. Unclear as to the etiology though she is also prone to constipation. She denies any prior episodes of mechanical obstruction. Abdomen looks much less distended. The serial x-ray shows progression of air into the colon with decompression of the small bowel. I will advance her to a r egular diet. I told her that if this does not return again does not warrant any further intervention on examination but if she recurs with bowel obstruction may warrant a more thorough exam Small bowel follow-through or even diagnostic laparoscopy to find out what's causing the obstruction. I will sign off the case. She can go home she is tolerating diet. VS,Fishbone, I+O VS, Fishbone, I+O Laboratory Tests 01/15/21 06:15 01/15/21 06:16 Vital Signs Date Time Temp Pulse Resp B/P (MAP) Pulse Ox O2 Delivery O2 Flow Rate FiO2 01/15/21 10:56 90 153/74 01/15/21 09:00 98.6 96 Room Air 01/15/21 06:00 18 I&O- Last 24 Hours up to 6 AM 01/15/21 06:00 Intake Total 1000 ml Output Total 1000 ml Balance 0 ml KEVIN FOLEY MD January 15, 2021 13:19
--- NOTE | 2021-01-15 13:46 | DS.PDOC ---
Discharge Summary General Date of Admission January 13, 2021 at 17:58 Date of Discharge 01/15/21 Discharge Summary PROCEDURES PERFORMED DURING STAY: [None]. 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 tubal ligation hypothyroidism hypertension. OSTEOARTHRITIS HEMORRHOIDS ESOPHAGEAL REFLUX, HYPERLIPIDEMIA, DOESN'T TOLERATE STATINS D/T JOINT/MUSCLE PAINS ANAL FISSURE SEASONAL ALLERGIES ACTINIC KERATOSES SEBORRHEIC KERATOSES MATA ANGIOMA COMPLICATIONS/CHIEF COMPLAINT: Neutropenia,Sbo. HOSPITAL COURSE: 75 year old female presented to ED with 1 day history of abdominal pain and multiple episodes of vomiting. Patient reports that she was feeling a little bloated for the past 3 to 4 days but was having small hard bowel movements which is not unusual for her. She was eating normally. Then she started having severe crampy abdominal pain across the center of the abdomen and around the umbilicus since last night. He pain was 8/10 in intensity when the cramps came then it would go away. Then from early this morning she started vomiting and vomiting innumerable times about every 1/2 hour with green bile coming out associated with worsened abdominal pain. In the ED CT abdomen showed SBO with dilated ileal loops with transition point in transition in the mid to distal ileum, well proximal to the ileocecal valve. She was admitted for SBO. SBO seems to be resolved. Abd Xray no further dilated loops. tolerating diet. no surgical intervention needed. Sinus tachycardia resolved Rheumatoid arthritis diagnosed at the age of 28, on prednisone and immunomodulators. continue home meds. 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 metoprolol Hiatal hernia PPI Diverticulosis on the left colon DISCHARGE MEDICATIONS: Please see below. ALLERGIES: Please see below. PHYSICAL EXAMINATION ON DISCHARGE: VITAL SIGNS: Please see below. General Exam: Positive: Alert, Cooperative, No Acute Distress Eye Exam: Positive: PERRLA, Conjunctiva & lids normal, EOMI; Negative: Sclera icteric ENT Exam: Positive: Atraumatic, Mucous membr. moist/pink, Pharynx Normal Neck Exam: Positive: Supple; Negative: JVD, thyromegaly Chest Exam: Positive: Clear to auscultation, Normal air movement Heart Exam: Positive: Rate Normal, Regular Rhythm, Normal S1, Normal S2; Negative: Murmurs, Rubs Telemetry: Positive: Sinus, Tachycardia Abdomen Exam: Positive: Normal bowel sounds, Soft, nontender, no further distension. Negative: Tenderness Extremity Exam: Negative: Clubbing, Cyanosis, Edema Skin Exam: Positive: Nl turgor and temperature; Negative: Breakdown, Lesion LABORATORY DATA: Please see below. ACTIVITY: [As tolerated]. DIET: Soft low residue diet for 2 days then regular diet. DISCHARGE PLAN: Home DISCHARGE INSTRUCTIONS: PMD in [address] Moffett as needed. DISCHARGE CONDITION: [Stable]. TIME SPENT ON DISCHARGE: 35 minutes. Vital Signs/I&Os Vital Signs Date Time Temp Pulse Resp B/P (MAP) Pulse Ox O2 Delivery O2 Flow Rate FiO2 01/15/21 10:56 90 153/74 01/15/21 09:00 98.6 96 Room Air 01/15/21 06:00 18 I&O- Last 24 Hours up to 6 AM 01/15/21 06:00 Intake Total 1000 ml Output Total 1000 ml Balance 0 ml Laboratory Data Labs 24H Laboratory Tests 2 01/14/21 16:44: Bedside Glucose (Misc Panel) 101 01/14/21 21:22: Bedside Glucose (Misc Panel) 82L 01/15/21 06:15: Neutrophils (%) (Auto) , Neutrophils # (Auto) , Nucleated Red Blood Cells % (auto) 0.0, Neutrophils 22L, Lymphocytes (Manual) 40, Monocytes (Manual) 33H, Eosinophils (Manual) 2, Basophils (Manual) 2H, Atypical Lymphocytes 1, Anisocytosis 1+, Platelet Estimate NORMAL 01/15/21 06:16: Anion Gap 7L, Glomerular Filtration Rate > 60.0, Calcium Level 8.5L CBC/BMP Laboratory Tests 01/15/21 06:15 01/15/21 06:16 FSBS Laboratory Tests Test 01/14/21 16:44 01/14/21 21:22 Range/Units Bedside Glucose (Misc Panel) 101 82 83-110 MG/DL Discharge Medications Scheduled Adalimumab (Humira) 40 Mg/0.8 Ml Kit, 40 MG SC Q2WK, (Reported) EVERY OTHER TOR Amlodipine Besylate (Amlodipine Besylate) 5 Mg Tablet, 5 MG PO DAILY, (Reported) Cholecalciferol (Vitamin D3) (Vitamin D3) 1,000 Unit Tablet, 1,000 UNITS PO DAILY, (Reported) D-Mannose (Azo D-Mannose) 500 Mg Capsule, 500 MG PO DAILY, (Reported) Docusate Sodium (Stool Softener) 100 Mg Cap, 100 MG PO BID, (Reported) Levocetirizine Dihydrochloride (Levocetirizine Dihydrochloride) 5 Mg Tab, 5 MG PO QHS, (Reported) Levothyroxine Sodium (Synthroid) 88 Mcg Tab, 88 MCG PO DAILY, (Reported) Metoprolol Succinate (Metoprolol Succinate) 50 Mg Tab, 50 MG PO QHS, (Reported) Montelukast Sodium (Montelukast Sodium) 10 Mg Tab, 10 MG PO QHS, (Reported) Pantoprazole Sodium (Protonix) 20 Mg Tablet.dr, 20 MG PO DAILY, (Reported) Prednisone (Prednisone) 5 Mg Tablet, 5 MG PO DAILY, (Reported) Allergies Coded Allergies: codeine (Verified Allergy, Severe, sob, increased pulse, 12/07/18) esomeprazole (Verified Allergy, Intermediate, rash, hives, 12/07/18) erythromycin base (Verified Allergy, Unknown, 12/07/18) Sulfa (Sulfonamide Antibiotics) (Verified Adverse Reaction, Intermediate, n/v, 12/07/18) morphine (Verified Adverse Reaction, Intermediate, n/v, 12/07/18) Cephalosporins (Verified Adverse Reaction, Mild, fever, 12/07/18) azithromycin (Verified Adverse Reaction, Mild, fever, 12/07/18) sitagliptin (Verified Adverse Reaction, Unknown, RA FLAREUP, 01/13/21) SYLVIE CHING MD January 15, 2021 13:46
[2021-01-15 14:00] VITALS: BP 135/76
== END 2021-01-15 16:30 | disposition home or self-care (01) | DRG 389 ==
LOC: EDBD 12:10 → M ED 12:10 → M ED INP 17:58 → ENRESERV 21:55 → M MS5PR 23:05
PROVIDERS: ADMIT Internal Medicine Nephrology; ATTEND Internal Medicine Nephrology
DX: K56.600 Partial intestinal obstruction, unspecified as to cause (principal); C91.Z0 Other lymphoid leukemia not having achieved remission; D70.9 Neutropenia, unspecified; I10 Essential (primary) hypertension; E03.9 Hypothyroidism, unspecified; M19.90 Unspecified osteoarthritis, unspecified site; K64.8 Other hemorrhoids; Z96.641 Presence of right artificial hip joint; M06.9 Rheumatoid arthritis, unspecified; E78.5 Hyperlipidemia, unspecified; L82.1 Other seborrheic keratosis; L57.0 Actinic keratosis; K21.9 Gastro-esophageal reflux disease without esophagitis; K44.9 Diaphragmatic hernia without obstruction or gangrene; K57.30 Diverticulosis of large intestine without perforation or abscess without bleeding; Z79.899 Other long term (current) drug therapy; Z88.5 Allergy status to narcotic agent; Z88.2 Allergy status to sulfonamides; Z88.8 Allergy status to other drugs, medicaments and biological substances

== ENCOUNTER → 2021-07-10 | Outpatient (REF) | payer MEDICARE ==
[~2021-07-10] MED LIST changes: +D-MA500C2 PO; +PROT20TA11 PO
[2021-07-10 17:52] LABS: HEMOGLOBIN A1c 6.3 %
[2021-07-10 18:15] LABS: ALBUMIN 3.3 GM/DL (3.2-5.2); BILIRUBIN,TOTAL 0.7 MG/DL (0.2-1.0); CALCIUM LEVEL 8.6 MG/DL (8.8-10.2); CREATININE FOR GFR 1.2 MG/DL (0.55-1.30); GLOMERULAR FILTRATION RATE 46.6 (>39); POTASSIUM SERUM 4.6 MEQ/L (3.5-5.1); THYROID STIMULATING HORMONE 0.664 uIU/ML (0.358-3.740); TOTAL 25(OH) VITAMIN D 30.8 NG/ML (30.0-100.0); TOTAL PROTEIN 7.8 GM/DL (6.4-8.2)
== END ==
LOC: M LABDRWAD 17:11
PROVIDERS: ATTEND Nurse Practitioner Adult Health
DX: Z00.00 Encounter for general adult medical examination without abnormal findings (principal); E11.9 Type 2 diabetes mellitus without complications; E55.9 Vitamin D deficiency, unspecified; E03.9 Hypothyroidism, unspecified

== ENCOUNTER → 2021-07-10 | Outpatient (CLI) | payer MEDICARE ==
--- NOTE | 2021-07-10 13:11 | REP ---
INDICATION: SCREENING MAMMOGRAM FOR BREAST CA. COMPARISON: Multiple prior screening examinations, the most recent, 07/09/2020 TECHNIQUE: Digital screening (2D) mammography was performed bilaterally in the CC and MLO projections. Additionally, breast tomosynthesis (3D mammography) was performed bilaterally in the CC and MLO projections. FINDINGS: By history, the patient has no complaints of a palpable breast abnormality or other significant breast complaints. The Volpara volumetric breast density pattern is a, the breasts are almost entirely fatty. In the anterior 3rd of the left breast, above and lateral to the nipple, in the upper outer quadrant, at the 2 to 3 o'clock position, there is an irregular isodense focal asymmetry. The right breast has a stable appearance. IMPRESSION: BIRADS/ACR : Category 0: Incomplete, need additional imaging evaluation. This patient's Tyrer-Cuzick lifetime breast cancer risk assessment score is 3.2%. This mammogram was interpreted with the aid of an FDA-approved computer-aided detection system. The patient states she had a clinical breast exam in June 2021. The patient letter being requested is M0. RECOMMENDATION: 2D and 3D focal compression of the left breast in the CC and MLO orientations and targeted left breast ultrasound. <Electronically signed by Atilio Guzman > 07/10/21 [id number]
--- NOTE | 2021-07-10 15:07 | DEXAMM ---
INDICATION: AGE RELATED OSTEOPOROSIS WITH OUT CURRENT PATH FX. COMPARISON: 03/22/2018 as well as other prior exams. TECHNIQUE: Bone density was measured using dual-energy x-ray absorptiometry (DEXA). FINDINGS: AP SPINE L1-L4 BMD 1.122 g/cm2 Young Adult T-Score -0.6 Age Matched Z-Score 1.2. LT FEMUR, TOTAL BMD 0.832 g/cm2 Young Adult T-Score -1.4 Age Matched Z-Score 0.4. LT NECK BMD 0.790 g/cm2 Young Adult T-Score -1.8 Age Matched Z-Score 0.2. IMPRESSION: There is normal bone density of the spine. There is low bone density of the left hip. The density of the spine has decreased 4.1% since the initial exam on 08/08/2007. The density of the spine decreased 10.6% since most recent exam on 03/22/2018. The density of the left hip has decreased 15.1% since initial exam on 08/08/2007. The density of the left hip has decreased 13.0% since most recent exam on 03/22/2018. FOLLOW-UP: Recommendation for the next bone density exam: 2 years. <Electronically signed by David Jeff > 07/10/21 [id number]
== END ==
LOC: M WHC 10:23
PROVIDERS: ATTEND Nurse Practitioner Adult Health
DX: R92.2 Inconclusive mammogram (principal); M81.0 Age-related osteoporosis without current pathological fracture; Z88.1 Allergy status to other antibiotic agents; Z88.8 Allergy status to other drugs, medicaments and biological substances; Z79.899 Other long term (current) drug therapy

== ENCOUNTER → 2021-08-04 | Outpatient (CLI) | payer MEDICARE ==
--- NOTE | 2021-08-04 12:44 | REP ---
INDICATION: LEFT BREAST ADD VIEWS. COMPARISON: 07/10/2021, 07/09/2020, 04/09/2019, 03/22/2018, 03/03/2017. TECHNIQUE: Spot compression views left breast with tomosynthesis. FINDINGS: The suspected focal asymmetry in the upper-outer quadrant of the left breast compresses out to an unchanged appearance compared to prior studies. There is no new mass or architectural distortion. IMPRESSION: BIRADS/ACR category 1, negative. No change since prior studies. This mammogram was interpreted with the aid of an FDA-approved computer-aided detection system. The patient letter being requested is M 1. RECOMMENDATION: Repeat screening mammography recommended 1 year (for women over 40). <Electronically signed by David Jeff > 08/04/21 [id number]
== END ==
LOC: M WHC 11:45
PROVIDERS: ATTEND Nurse Practitioner Adult Health
DX: R92.2 Inconclusive mammogram (principal); N63.21 Unspecified lump in the left breast, upper outer quadrant
CPT/HCPCS: 77065; G0279

== ENCOUNTER → 2021-08-24 | Outpatient (REF) | payer MEDICARE ==
[~2021-08-24] MED LIST changes: -MONT10TA10 PO; +MONT10TA97 PO; +OMEP-173 PO; -OMEP-218 PO; -OMEP-221 PO; +OMEP40CA5 PO
[2021-08-24 17:56] LABS: BASO % 0.4 % (0.0-1.0); EOS # 0.3 10^3/uL (0.0-0.5); EOS % 12.1 % (0.0-3.0); HEMATOCRIT 38.8 % (36.0-47.0); HEMOGLOBIN 12.3 g/dl (12.0-15.5); LYMPH # 0.9 10^3/uL (1.5-5.0); LYMPH % 33.8 % (24.0-44.0); MEAN CORPUSCULAR HEMOGLOBIN 27.8 pg (27.0-33.0); MEAN CORPUSCULAR HGB CONC 31.7 g/dl (32.0-36.5); MEAN CORPUSCULAR VOLUME 87.8 fl (80.0-96.0); MONO # 0.6 10^3/uL (0.0-0.8); MONO % 22.1 % (2.0-8.0); NEUTROPHILS % 31.2 % (36.0-66.0); PLATELET COUNT, AUTOMATED 178 10^3/uL (150-450); RED BLOOD COUNT 4.42 10^6/uL (4.00-5.40); WHITE BLOOD COUNT 2.7 10^3/uL (4.0-10.0)
[2021-08-24 19:21] LABS: NEUTROPHILS # 0.9 10^3/uL (1.5-8.5)
== END ==
LOC: M LABDRWAD 16:37
PROVIDERS: ATTEND Internal Medicine Rheumatology
DX: E55.9 Vitamin D deficiency, unspecified (principal); M05.79 Rheumatoid arthritis with rheumatoid factor of multiple sites without organ or systems involvement; Z79.899 Other long term (current) drug therapy

== ENCOUNTER → 2021-12-31 | Outpatient (CLI) | payer MEDICARE ==
[~2021-12-31] MED LIST changes: -D31000TA2 PO; +VITA100093 PO
[2021-12-31 12:45] LABS: BASO % 0.7 % (0.0-1.0); EOS # 0.1 10^3/uL (0.0-0.5); EOS % 8.7 % (0.0-3.0); HEMATOCRIT 37.8 % (36.0-47.0); HEMOGLOBIN 12.3 g/dl (12.0-15.5); LYMPH # 0.5 10^3/uL (1.5-5.0); MEAN CORPUSCULAR HEMOGLOBIN 28.8 pg (27.0-33.0); MEAN CORPUSCULAR HGB CONC 32.5 g/dl (32.0-36.5); MEAN CORPUSCULAR VOLUME 88.5 fl (80.0-96.0); MONO # 0.5 10^3/uL (0.0-0.8); MONO % 37.7 % (2.0-8.0); NEUTROPHILS % 15.9 % (36.0-66.0); PLATELET COUNT, AUTOMATED 150 10^3/uL (150-450); RED BLOOD COUNT 4.27 10^6/uL (4.00-5.40); WHITE BLOOD COUNT 1.4 10^3/uL (4.0-10.0)
[2021-12-31 13:06] LABS: HEMOGLOBIN A1c 6.1 %
[2021-12-31 13:10] LABS: NEUTROPHILS # 0.2 10^3/uL (1.5-8.5)
[2021-12-31 13:29] LABS: ALBUMIN 3.2 GM/DL (3.2-5.2); BILIRUBIN,TOTAL 0.5 MG/DL (0.2-1.0); C REACTIVE PROTEIN QUANTITATIV 0.39 MG/DL (0.00-0.30); CALCIUM LEVEL 8.8 MG/DL (8.8-10.2); CHOLESTEROL RISK RATIO 6.064 (<5); CREATININE FOR GFR 1.01 MG/DL (0.55-1.30); GLOMERULAR FILTRATION RATE 56.7 (>39); POTASSIUM SERUM 3.8 MEQ/L (3.5-5.1); TOTAL 25(OH) VITAMIN D 28.4 NG/ML (30.0-100.0); TOTAL PROTEIN 7.3 GM/DL (6.4-8.2)
[2021-12-31 13:35] LABS: ERYTHROCYTE SEDIMENTATION RATE 45 mm/hr (0-30)
== END ==
LOC: M ADAMS 10:14
PROVIDERS: ATTEND Nurse Practitioner Adult Health
DX: E55.9 Vitamin D deficiency, unspecified (principal); E03.9 Hypothyroidism, unspecified; F41.1 Generalized anxiety disorder; K21.9 Gastro-esophageal reflux disease without esophagitis; I10 Essential (primary) hypertension; F32.1 Major depressive disorder, single episode, moderate; E11.9 Type 2 diabetes mellitus without complications; C91.Z0 Other lymphoid leukemia not having achieved remission

== ENCOUNTER → 2022-06-24 | Outpatient (REF) | payer MEDICARE ==
[2022-06-24 13:58] LABS: BASO % 0.4 % (0.0-1.0); EOS # 0.2 10^3/uL (0.0-0.5); EOS % 8.6 % (0.0-3.0); HEMATOCRIT 39.8 % (36.0-47.0); LYMPH % 35.7 % (24.0-44.0); MEAN CORPUSCULAR HEMOGLOBIN 29.4 pg (27.0-33.0); MEAN CORPUSCULAR HGB CONC 32.7 g/dl (32.0-36.5); MONO # 0.5 10^3/uL (0.0-0.8); MONO % 17.8 % (2.0-8.0); NEUTROPHILS % 37.5 % (36.0-66.0); PLATELET COUNT, AUTOMATED 169 10^3/uL (150-450); RED BLOOD COUNT 4.42 10^6/uL (4.00-5.40); WHITE BLOOD COUNT 2.7 10^3/uL (4.0-10.0)
[2022-06-24 14:36] LABS: HEMOGLOBIN A1c 6.2 %
[2022-06-24 14:49] LABS: BILIRUBIN,TOTAL 0.4 MG/DL (0.2-1.0); CALCIUM LEVEL 8.8 MG/DL (8.8-10.2); CREATININE FOR GFR 1.04 MG/DL (0.55-1.30); GLOMERULAR FILTRATION RATE 54.8 (>39); POTASSIUM SERUM 4.1 MEQ/L (3.5-5.1); THYROID STIMULATING HORMONE 3.16 uIU/ML (0.358-3.740); TOTAL PROTEIN 7.6 GM/DL (6.4-8.2)
[2022-06-24 15:19] LABS: ERYTHROCYTE SEDIMENTATION RATE 58 mm/hr (0-30)
[2022-06-24 15:29] LABS: TOTAL 25(OH) VITAMIN D 34.6 NG/ML (30.0-100.0)
== END ==
LOC: M SFHCADAM 09:06
PROVIDERS: ATTEND Nurse Practitioner Adult Health
DX: E11.9 Type 2 diabetes mellitus without complications (principal); E55.9 Vitamin D deficiency, unspecified; C91.Z0 Other lymphoid leukemia not having achieved remission; E03.9 Hypothyroidism, unspecified

== ENCOUNTER → 2022-07-29 | Outpatient (CLI) | payer MEDICARE | LOC: M WHC 11:19 | PROVIDERS: ATTEND Nurse Practitioner Adult Health | DX: Z12.31 Encounter for screening mammogram for malignant neoplasm of breast (principal) ==

== ENCOUNTER → 2022-11-16 | Outpatient (REF) | payer MEDICARE | LOC: M SFHCPLAZ 17:01 | PROVIDERS: ATTEND Nurse Practitioner Adult Health | DX: Z53.9 Procedure and treatment not carried out, unspecified reason (principal) ==

== ENCOUNTER → 2022-12-01 | Outpatient (REF) | payer MEDICARE ==
[2022-12-01 14:30] LABS: HEMATOCRIT 41.4 % (36.0-47.0); HEMOGLOBIN 13.2 g/dl (12.0-15.5); MEAN CORPUSCULAR HEMOGLOBIN 28.7 pg (27.0-33.0); MEAN CORPUSCULAR HGB CONC 31.9 g/dl (32.0-36.5); PLATELET COUNT, AUTOMATED 177 10^3/uL (150-450); WHITE BLOOD COUNT 2.7 10^3/uL (4.0-10.0)
[2022-12-01 14:40] LABS: HEMOGLOBIN A1c 6.2 % (4.0-6.0)
[2022-12-01 14:56] LABS: ALBUMIN 3.2 G/DL (3.2-5.2); BILIRUBIN,TOTAL 0.4 MG/DL (0.3-1.2); CALCIUM LEVEL 8.8 MG/DL (8.3-10.6); CREATININE FOR GFR 1.02 MG/DL (0.55-1.30); GLOMERULAR FILTRATION RATE 55.9 (>39); POTASSIUM SERUM 4.1 MMOL/L (3.5-5.1); TOTAL PROTEIN 7.4 G/DL (5.7-8.2)
[2022-12-01 14:57] LABS: THYROID STIMULATING HORMONE 2.381 uIU/ML (0.55-4.78)
[2022-12-01 14:58] LABS: TOTAL 25(OH) VITAMIN D 42.7 NG/ML (20.0-100.0)
== END ==
LOC: M LABDRWAD 12:47
PROVIDERS: ATTEND Nurse Practitioner Adult Health
DX: E11.9 Type 2 diabetes mellitus without complications (principal); E55.9 Vitamin D deficiency, unspecified; C91.Z0 Other lymphoid leukemia not having achieved remission; E03.9 Hypothyroidism, unspecified

== ENCOUNTER → 2023-01-06 | Outpatient (REF) | payer MEDICARE | LOC: M LAB REF 13:10 | PROVIDERS: ATTEND Physician Assistant | DX: R30.0 Dysuria (principal) ==

== ENCOUNTER → 2023-06-22 | Outpatient (REF) | payer MEDICARE | LOC: M SFHCDERM 18:01 | PROVIDERS: ATTEND Physician Assistant | DX: L82.1 Other seborrheic keratosis (principal) ==

== ENCOUNTER → 2023-06-28 | Outpatient (REF) | payer MEDICARE ==
[2023-06-28 13:35] LABS: BASO % 0.5 % (0.0-1.0); EOS # 0.3 10^3/uL (0.0-0.5); EOS % 7.9 % (0.0-3.0); HEMATOCRIT 39.8 % (36.0-47.0); HEMOGLOBIN 13.6 g/dl (12.0-15.5); LYMPH # 1.2 10^3/uL (1.5-5.0); LYMPH % 29.7 % (24.0-44.0); MEAN CORPUSCULAR HEMOGLOBIN 31.3 pg (27.0-33.0); MEAN CORPUSCULAR HGB CONC 34.2 g/dl (32.0-36.5); MEAN CORPUSCULAR VOLUME 91.5 fl (80.0-96.0); MONO # 0.6 10^3/uL (0.0-0.8); MONO % 14.6 % (2.0-8.0); NEUTROPHILS % 47.1 % (36.0-66.0); PLATELET COUNT, AUTOMATED 169 10^3/uL (150-450); RED BLOOD COUNT 4.35 10^6/uL (4.00-5.40); WHITE BLOOD COUNT 4.2 10^3/uL (4.0-10.0)
[2023-06-28 13:38] LABS: ALKALINE PHOSPHATASE 75 U/L (46-116); ALT/SGPT 24 U/L (7.0-40); AST/SGOT 20 U/L (<34); BILIRUBIN,TOTAL 0.5 MG/DL (0.3-1.2); BLOOD UREA NITROGEN 18 MG/DL (9-23); CALCIUM LEVEL 8.8 MG/DL (8.3-10.6); CARBON DIOXIDE LEVEL 27 MMOL/L (20-31); CHLORIDE LEVEL 108 MMOL/L (98-107); CREATININE FOR GFR 0.94 MG/DL (0.55-1.30); GLOMERULAR FILTRATION RATE > 60.0 (>39); GLUCOSE, FASTING 102 MG/DL (74-106); SODIUM LEVEL 142 MMOL/L (136-145); TOTAL PROTEIN 7.1 G/DL (5.7-8.2)
[2023-06-28 13:39] LABS: THYROID STIMULATING HORMONE 5.275 uIU/ML (0.55-4.78)
[2023-06-28 13:40] LABS: TOTAL 25(OH) VITAMIN D 33.6 NG/ML (20.0-100.0)
[2023-06-28 14:50] LABS: ERYTHROCYTE SEDIMENTATION RATE 67 mm/hr (0-30)
== END ==
LOC: M LABDRWAD 13:06
PROVIDERS: ATTEND Nurse Practitioner Adult Health
DX: C91.Z0 Other lymphoid leukemia not having achieved remission (principal); E11.9 Type 2 diabetes mellitus without complications; E03.9 Hypothyroidism, unspecified; E55.9 Vitamin D deficiency, unspecified; Z79.890 Hormone replacement therapy

== ENCOUNTER → 2023-08-01 | Outpatient (CLI) | payer MEDICARE | LOC: M WHC 09:37 | PROVIDERS: ATTEND Internal Medicine Rheumatology | DX: Z13.820 Encounter for screening for osteoporosis (principal); M81.0 Age-related osteoporosis without current pathological fracture; M85.88 Other specified disorders of bone density and structure, other site ==

== ENCOUNTER → 2023-08-01 | Outpatient (CLI) | payer MEDICARE | LOC: M WHC 09:35 | PROVIDERS: ATTEND Nurse Practitioner Adult Health | DX: Z12.31 Encounter for screening mammogram for malignant neoplasm of breast (principal) ==

== ENCOUNTER → 2023-12-12 | Outpatient (REF) | payer MEDICARE, MEDICAID ==
[2023-12-12 13:13] LABS: HEMATOCRIT 39.4 % (36.0-47.0); HEMOGLOBIN 12.8 g/dl (12.0-15.5); MEAN CORPUSCULAR HEMOGLOBIN 29.1 pg (27.0-33.0); MEAN CORPUSCULAR HGB CONC 32.5 g/dl (32.0-36.5); MEAN CORPUSCULAR VOLUME 89.5 fl (80.0-96.0); PLATELET COUNT, AUTOMATED 176 10^3/uL (150-450)
[2023-12-12 13:27] LABS: ERYTHROCYTE SEDIMENTATION RATE 69 mm/hr (0-30)
[2023-12-12 13:42] LABS: HEMOGLOBIN A1c 6.3 % (4.0-6.0)
[2023-12-12 13:50] LABS: ALKALINE PHOSPHATASE 84 U/L (46-116); ALT/SGPT 16 U/L (7.0-40); AST/SGOT 15 U/L (<34); BILIRUBIN,TOTAL 0.4 MG/DL (0.3-1.2); BLOOD UREA NITROGEN 16 MG/DL (9-23); CALCIUM LEVEL 8.8 MG/DL (8.3-10.6); CARBON DIOXIDE LEVEL 28 MMOL/L (20-31); CHLORIDE LEVEL 109 MMOL/L (98-107); CHOLESTEROL LEVEL 202 MG/DL (<200); CHOLESTEROL RISK RATIO 7.06 (<5); CREATININE FOR GFR 0.89 MG/DL (0.55-1.30); GLOMERULAR FILTRATION RATE > 60.0 (>39); GLUCOSE, FASTING 110 MG/DL (74-106); HDL CHOLESTEROL 28.6 MG/DL (>40); LDL CHOLESTEROL 122.2 MG/DL (<100); NON-HDL-C 173.4 MG/DL; SODIUM LEVEL 138 MMOL/L (136-145); TOTAL PROTEIN 6.9 G/DL (5.7-8.2); TRIGLYCERIDES LEVEL 256 MG/DL (<150)
[2023-12-12 13:52] LABS: THYROID STIMULATING HORMONE 4.086 uIU/ML (0.55-4.78)
[2023-12-12 14:07] LABS: CREATININE, URINE 278.5 MG/DL; MAU/CREAT RATIO 7.5 MCG/MG (0.0-30.0)
== END ==
LOC: M SFHCPLAZ 09:30
PROVIDERS: ATTEND Nurse Practitioner Adult Health
DX: C91.Z0 Other lymphoid leukemia not having achieved remission (principal); E11.9 Type 2 diabetes mellitus without complications; E03.9 Hypothyroidism, unspecified; F41.1 Generalized anxiety disorder; K21.9 Gastro-esophageal reflux disease without esophagitis; I10 Essential (primary) hypertension; F32.1 Major depressive disorder, single episode, moderate; E55.9 Vitamin D deficiency, unspecified

== ENCOUNTER → 2023-12-20 | Outpatient (CLI) | payer MEDICARE, MEDICAID | LOC: M SOG 13:49 | PROVIDERS: ATTEND Physician Assistant | DX: M25.562 Pain in left knee (principal) ==

== ENCOUNTER → 2024-05-01 | Outpatient (REF) | payer MEDICARE, MEDICAID | LOC: M LAB REF 16:45 | PROVIDERS: ATTEND Surgery | DX: D17.22 Benign lipomatous neoplasm of skin and subcutaneous tissue of left arm (principal) ==

== ENCOUNTER → 2024-05-07 | Outpatient (REF) | payer MEDICARE, MEDICAID ==
[2024-05-07 14:04] LABS: ALBUMIN 3.2 G/DL (3.2-5.2); BILIRUBIN,TOTAL 0.5 MG/DL (0.3-1.2); CALCIUM LEVEL 8.6 MG/DL (8.3-10.6); CREATININE FOR GFR 1.02 MG/DL (0.55-1.30); GLOMERULAR FILTRATION RATE 55.8 (>39); POTASSIUM SERUM 3.8 MMOL/L (3.5-5.1); TOTAL PROTEIN 7.3 G/DL (5.7-8.2)
== END ==
LOC: M LABDRWAD 12:30
PROVIDERS: ATTEND Internal Medicine Rheumatology
DX: Z79.899 Other long term (current) drug therapy (principal)

== ENCOUNTER → 2024-06-27 | Outpatient (REF) | payer MEDICARE, MEDICAID ==
[2024-06-27 13:45] LABS: HEMATOCRIT 39.9 % (36.0-47.0); HEMOGLOBIN 12.7 g/dl (12.0-15.5); MEAN CORPUSCULAR HEMOGLOBIN 29.6 pg (27.0-33.0); MEAN CORPUSCULAR HGB CONC 31.8 g/dl (32.0-36.5); PLATELET COUNT, AUTOMATED 144 10^3/uL (150-450); RED BLOOD COUNT 4.29 10^6/uL (4.00-5.40); WHITE BLOOD COUNT 2.9 10^3/uL (4.0-10.0)
[2024-06-27 13:48] LABS: ALKALINE PHOSPHATASE 104 U/L (46-116); ALT/SGPT 25 U/L (7.0-40); AST/SGOT 18 U/L (<34); BILIRUBIN,TOTAL 0.4 MG/DL (0.3-1.2); BLOOD UREA NITROGEN 16 MG/DL (9-23); CALCIUM LEVEL 8.8 MG/DL (8.3-10.6); CARBON DIOXIDE LEVEL 26 MMOL/L (20-31); CHLORIDE LEVEL 111 MMOL/L (98-107); CHOLESTEROL LEVEL 214 MG/DL (<200); CHOLESTEROL RISK RATIO 7.53 (<5); GLOMERULAR FILTRATION RATE > 60.0 (>39); GLUCOSE, FASTING 109 MG/DL (74-106); HDL CHOLESTEROL 28.4 MG/DL (>40); LDL CHOLESTEROL 147.4 MG/DL (<100); NON-HDL-C 185.6 MG/DL; SODIUM LEVEL 141 MMOL/L (136-145); TOTAL PROTEIN 7.3 G/DL (5.7-8.2); TRIGLYCERIDES LEVEL 191 MG/DL (<150)
[2024-06-27 13:49] LABS: THYROID STIMULATING HORMONE 2.321 uIU/ML (0.55-4.78); TOTAL 25(OH) VITAMIN D 34.7 NG/ML (20.0-100.0)
[2024-06-27 14:20] LABS: MALB URINE SIEMENS < 3.0 MG/L
[2024-06-27 14:49] LABS: HEMOGLOBIN A1c 6.1 % (4.0-6.0)
== END ==
LOC: M SFHCADAM 09:33
PROVIDERS: ATTEND Nurse Practitioner Adult Health
DX: Z00.00 Encounter for general adult medical examination without abnormal findings (principal); C91.Z0 Other lymphoid leukemia not having achieved remission; E11.9 Type 2 diabetes mellitus without complications; E03.9 Hypothyroidism, unspecified; F41.1 Generalized anxiety disorder; K21.9 Gastro-esophageal reflux disease without esophagitis; I10 Essential (primary) hypertension; F32.1 Major depressive disorder, single episode, moderate; E55.9 Vitamin D deficiency, unspecified

== ENCOUNTER → 2024-08-02 | Outpatient (CLI) | payer MEDICARE, MEDICAID | LOC: M WHC 13:13 | PROVIDERS: ATTEND Nurse Practitioner Adult Health | DX: Z12.31 Encounter for screening mammogram for malignant neoplasm of breast (principal) ==

== ENCOUNTER → 2024-10-23 | Outpatient (REF) | payer MEDICARE, MEDICAID ==
[2024-10-23 18:12] LABS: ALBUMIN 3.4 G/DL (3.2-5.2); ALT/SGPT 14 U/L (7.0-40); AST/SGOT 14 U/L (<34); BASO % 0.3 % (0.0-1.0); BLOOD UREA NITROGEN 22 MG/DL (9-23); CALCIUM LEVEL 9.3 MG/DL (8.3-10.6); CARBON DIOXIDE LEVEL 25 MMOL/L (20-31); CHLORIDE LEVEL 105 MMOL/L (98-107); CREATININE FOR GFR 0.86 MG/DL (0.55-1.30); EOS # 0.1 10^3/uL (0.0-0.5); EOS % 1.8 % (0.0-3.0); GLOMERULAR FILTRATION RATE > 60.0 (>39); GLUCOSE, FASTING 125 MG/DL (74-106); HEMATOCRIT 41.3 % (36.0-47.0); HEMOGLOBIN 13.3 g/dl (12.0-15.5); LYMPH # 1.4 10^3/uL (1.5-5.0); LYMPH % 22.6 % (24.0-44.0); MEAN CORPUSCULAR HEMOGLOBIN 29.9 pg (27.0-33.0); MEAN CORPUSCULAR HGB CONC 32.2 g/dl (32.0-36.5); MEAN CORPUSCULAR VOLUME 92.8 fl (80.0-96.0); MONO # 0.7 10^3/uL (0.0-0.8); MONO % 10.9 % (2.0-8.0); NEUTROPHILS # 3.9 10^3/uL (1.5-8.5); NEUTROPHILS % 63.9 % (36.0-66.0); PHOSPHORUS LEVEL 3.6 MG/DL (2.4-5.1); PLATELET COUNT, AUTOMATED 182 10^3/uL (150-450); POTASSIUM SERUM 4.4 MMOL/L (3.5-5.1); RED BLOOD COUNT 4.45 10^6/uL (4.00-5.40); SODIUM LEVEL 144 MMOL/L (136-145); WHITE BLOOD COUNT 6.1 10^3/uL (4.0-10.0)
[2024-10-23 18:26] LABS: ERYTHROCYTE SEDIMENTATION RATE 40 mm/hr (0-30)
== END ==
LOC: M LABDRWAD 17:24
PROVIDERS: ATTEND Internal Medicine Rheumatology
DX: Z79.899 Other long term (current) drug therapy (principal)

== ENCOUNTER → 2024-12-27 | Outpatient (REF) | payer MEDICARE, MEDICAID ==
[2024-12-27 13:23] LABS: HEMATOCRIT 41.2 % (36.0-47.0); HEMOGLOBIN 13.2 g/dl (12.0-15.5); MEAN CORPUSCULAR HEMOGLOBIN 30.1 pg (27.0-33.0); MEAN CORPUSCULAR VOLUME 94.1 fl (80.0-96.0); PLATELET COUNT, AUTOMATED 111 10^3/uL (150-450); RED BLOOD COUNT 4.38 10^6/uL (4.00-5.40)
[2024-12-27 14:02] LABS: THYROID STIMULATING HORMONE 1.789 uIU/ML (0.55-4.78)
[2024-12-27 14:10] LABS: FREE T4 1.48 NG/DL (0.89-1.76); TOTAL 25(OH) VITAMIN D 31.9 NG/ML (20.0-100.0)
[2024-12-27 14:24] LABS: ALBUMIN 3.2 G/DL (3.2-5.2); BILIRUBIN,TOTAL 0.4 MG/DL (0.3-1.2); CALCIUM LEVEL 8.6 MG/DL (8.3-10.6); CHOLESTEROL RISK RATIO 6.98 (<5); CREATININE FOR GFR 0.94 MG/DL (0.55-1.30); GLOMERULAR FILTRATION RATE 61.7 (>39); HDL CHOLESTEROL 30.2 MG/DL (>40); LDL CHOLESTEROL 118.8 MG/DL (<100); NON-HDL-C 180.8 MG/DL; POTASSIUM SERUM 4.3 MMOL/L (3.5-5.1); TOTAL PROTEIN 7.1 G/DL (5.7-8.2)
[2024-12-28 13:03] LABS: CREATININE, URINE 151.8 MG/DL; MAU/CREAT RATIO 8.5 MCG/MG (0.0-30.0)
== END ==
LOC: M LABDRWAD 12:57
PROVIDERS: ATTEND Nurse Practitioner Adult Health
DX: E11.9 Type 2 diabetes mellitus without complications (principal); C91.Z0 Other lymphoid leukemia not having achieved remission; E03.9 Hypothyroidism, unspecified; F41.1 Generalized anxiety disorder; K21.9 Gastro-esophageal reflux disease without esophagitis; I10 Essential (primary) hypertension; F32.1 Major depressive disorder, single episode, moderate; E55.9 Vitamin D deficiency, unspecified

== ENCOUNTER → 2025-06-06 | Outpatient (REF) | payer MEDICARE, MEDICAID ==
[~2025-06-06] MED LIST changes: +PRED-1142 PO; -PRED1TABL PO
[2025-06-06 13:21] LABS: APPEARANCE, URINE CLEAR (CLEAR); BACTERIA, URINE AUTO NEGATIVE (NEGATIVE); BILIRUBIN, URINE AUTO NEGATIVE (NEGATIVE); BLOOD, URINE BLOOD 1+ (NEGATIVE); GLUCOSE, URINE (UA) AUTO NEGATIVE (NEGATIVE); KETONE, URINE AUTO NEGATIVE (NEGATIVE); LEUKOCYTE ESTERASE, URINE AUTO 1+ (NEGATIVE); MUCUS, URINE SMALL (NEGATIVE); NITRITE, URINE AUTO NEGATIVE (NEGATIVE); PROTEIN, URINE AUTO NEGATIVE (NEGATIVE); RBC, URINE AUTO 1 /HPF (0-3); SPECIFIC GRAVITY URINE AUTO 1.013 (1.002-1.035); SQUAMOUS EPITHELIAL CELL UR AU 0 /HPF (0-6); UROBILINOGEN, URINE AUTO 0.2 mg/dL (0.0-2.0); WBC, URINE AUTO 2 /HPF (0-3)
== END ==
LOC: M SFHCPLAZ 12:50
DX: R39.9 Unspecified symptoms and signs involving the genitourinary system (principal)

== ENCOUNTER → 2025-06-19 | Outpatient (REF) | payer MEDICARE, MEDICAID ==
[2025-06-19 15:18] LABS: PLATELET COUNT, AUTOMATED 156 10^3/uL (150-450)
[2025-06-19 15:21] LABS: C REACTIVE PROTEIN QUANTITATIV < 0.50 MG/DL (<1.0)
[2025-06-19 15:22] LABS: ALT/SGPT 18 U/L (7.0-40); AST/SGOT 20 U/L (<34); CALCIUM LEVEL 8.4 MG/DL (8.3-10.6); CARBON DIOXIDE LEVEL 24 MMOL/L (20-31); CHLORIDE LEVEL 108 MMOL/L (98-107); CHOLESTEROL LEVEL 247 MG/DL (<200); CHOLESTEROL RISK RATIO 6.46 (<5); CREATININE FOR GFR 1.29 MG/DL (0.55-1.30); GLOMERULAR FILTRATION RATE 42.2 (>39); LDL CHOLESTEROL 155.2 MG/DL (<100); MAGNESIUM LEVEL 2.1 MG/DL (1.8-2.4); NON-HDL-C 208.8 MG/DL; POTASSIUM SERUM 4.1 MMOL/L (3.5-5.1); SODIUM LEVEL 142 MMOL/L (136-145); TRIGLYCERIDES LEVEL 268 MG/DL (<150)
[2025-06-19 15:23] LABS: TOTAL 25(OH) VITAMIN D 29.2 NG/ML (20.0-100.0)
[2025-06-19 15:24] LABS: FREE T4 1.33 NG/DL (0.89-1.76)
[2025-06-19 15:35] LABS: ERYTHROCYTE SEDIMENTATION RATE 43 mm/hr (0-30)
[2025-06-19 16:11] LABS: ESTIMATED AVERAGE GLUCOSE 131.0 MG/DL (60-110)
== END ==
LOC: M SFHCADAM 10:16
PROVIDERS: ATTEND Nurse Practitioner Adult Health
DX: Z00.00 Encounter for general adult medical examination without abnormal findings (principal); C91.Z0 Other lymphoid leukemia not having achieved remission; E11.9 Type 2 diabetes mellitus without complications; E03.9 Hypothyroidism, unspecified; I10 Essential (primary) hypertension; F41.1 Generalized anxiety disorder; K21.9 Gastro-esophageal reflux disease without esophagitis; F32.1 Major depressive disorder, single episode, moderate; E55.9 Vitamin D deficiency, unspecified

== ENCOUNTER → 2025-08-14 | Outpatient (CLI) | payer MEDICARE, MEDICAID | LOC: M WHC 13:16 | PROVIDERS: ATTEND Nurse Practitioner Adult Health | DX: Z12.31 Encounter for screening mammogram for malignant neoplasm of breast (principal); M81.0 Age-related osteoporosis without current pathological fracture; R92.313 Mammographic fatty tissue density, bilateral breasts; M85.852 Other specified disorders of bone density and structure, left thigh ==